=== PATIENT | male | born 1995 | race Caucasian/White ===

== ENCOUNTER 2018-09-24 19:21 | Emergency (ER) | payer OTHER ==
[2018-09-24 19:35] VITALS: BP 127/62; PULSE 88; TEMP 98.3; BMI 35.9
--- NOTE | 2018-09-24 19:35 | PDOC ---
Rapid Medical Evaluation Time Seen by Provider: 09/24/18 19:33 Medical Evaluation: Allergies Allergy/AdvReac Type Severity Reaction Status Date / Time No Known Allergies Allergy Verified 12/07/13 17:48 09/24/18 19:34 I have performed a brief in-person evaluation of this patient. The patient presents with a chief complaint of: atraumatic left thigh pain Pertinent physical exam findings: left quadriceps TTP mid thigh. I have ordered the following: nothing The patient will proceed to the ED for further evaluation. Discharge Disposition - Diagnosis Thigh pain - Referrals - Patient Instructions - Post Discharge Activity
--- NOTE | 2018-09-24 21:16 | PDOC ---
History of Present Illness - General Chief Complaint: Pain Stated Complaint: PCP SENT/THIGH PAIN Time Seen by Provider: 09/24/18 19:33 - History of Present Illness Initial Comments: 09/24/18 21:14 22-year-old healthy male with a past medical history significant for atrial fibrillation. He is off medication and has been out of A. fib for the last 2 years presents for evaluation of atraumatic left superior thigh pain. No systemic symptoms. Past History - Past Medical History Allergies/Adverse Reactions: Allergies Allergy/AdvReac Type Severity Reaction Status Date / Time No Known Allergies Allergy Verified 09/24/18 19:35 Home Medications: Ambulatory Orders NK [No Known Home Medication] 09/24/18 Cardiac Disorders: Yes (AFIB) COPD: No - Suicide/Smoking/Psychosocial Hx Smoking History: Never smoked Review of Systems - Review of Systems Musculoskeletal: Yes: Muscle Pain *Physical Exam - Vital Signs Last Vital Signs Temp Pulse Resp BP Pulse Ox 98.3 F 88 18 127/62 100 09/24/18 19:33 09/24/18 19:33 09/24/18 19:33 09/24/18 19:33 09/24/18 19:33 - Physical Exam Comments: 09/24/18 21:14 Left thigh skin color and temperature are normal range of motion of the hip and knee are full and nonpainful. Is mild tenderness about the area of the anterior superior thigh. 5 out of 5 strength in bilateral lower extremities without gross sensorimotor deficits thighs and calves are otherwise soft and nontender Moderate Sedation - Procedure Monitoring Vital Signs: Procedure Monitoring Vital Signs Temperature 98.3 F 09/24/18 19:33 Pulse Rate 88 09/24/18 19:33 Respiratory Rate 18 09/24/18 19:33 Blood Pressure 127/62 09/24/18 19:33 O2 Sat by Pulse Oximetry (%) 100 09/24/18 19:33 *DC/Admit/Observation/Transfer Diagnosis at time of Disposition: Thigh pain - Discharge Dispostion Disposition: HOME Condition at time of disposition: Stable Decision to Admit order: No - Referrals Referrals: ON STAFF,NOT [Primary Care Provider] - Niranjan Valdivia MD [Staff Physician] - - Patient Instructions Additional Instructions: He may take Tylenol and Motrin as directed for pain. Return to the emergency room should symptoms worsen or go unresolved and follow-up with orthopedic surgery in 2-3 days for further evaluation and treatment options. - Post Discharge Activity
== END 2018-09-24 21:31 | disposition home or self-care (01) ==
LOC: JERFT 19:21
DX: M79.652 Pain in left thigh (principal); Z86.79 Personal history of other diseases of the circulatory system
CPT/HCPCS: 99281-25

== ENCOUNTER 2018-10-25 17:44 | Emergency (ER) | payer OTHER ==
[2018-10-25 17:52] VITALS: BP 123/80; PULSE 105; TEMP 97.9; BMI 35.9
--- NOTE | 2018-10-25 17:55 | PDOC ---
History of Present Illness - General Chief Complaint: Pain Stated Complaint: RT SHOULDER PAIN Time Seen by Provider: 10/25/18 17:54 History Source: Patient - History of Present Illness Initial Comments: 10/25/18 18:24 22 year old male c/o left shoulder and scapula reports lifting heavy boxes 1 week ago. denies trauma or injury. denies chest pain, NVD, abdominal pain. pain is worse with movement pmhxL afib s/p ablation 10/25/18 18:31 Past History - Past Medical History Allergies/Adverse Reactions: Allergies Allergy/AdvReac Type Severity Reaction Status Date / Time No Known Allergies Allergy Verified 10/25/18 17:52 Home Medications: Ambulatory Orders Ibuprofen 600 mg PO QID PRN #20 tablet 10/25/18 Cardiac Disorders: Yes (AFIB) COPD: No - Surgical History Cardiac Surgery: Yes (ablasion at 18 yrs old) - Suicide/Smoking/Psychosocial Hx Smoking History: Never smoked Review of Systems - Review of Systems Able to Perform ROS?: Yes Is the patient limited Nigerien proficient: No Constitutional: No: Symptoms Reported, See HPI, Chills, Diaphoresis, Fever, Loss of Appetite, Malaise, Night Sweats, Weakness, Weight Stable, Unintentional Wgt. Loss, Unexplained wgt Loss, Other Musculoskeletal: Yes: Other (left shoulder pain ) *Physical Exam - Vital Signs Last Vital Signs Temp Pulse Resp BP Pulse Ox 97.9 F 105 H 20 123/80 97 10/25/18 17:49 10/25/18 17:49 10/25/18 17:49 10/25/18 17:49 10/25/18 17:49 - Physical Exam General Appearance: Yes: Appropriately Dressed Respiratory/Chest: negative: Chest Tender Musculoskeletal: positive: Other (full rom . left scapula tenderness) Neurologic: positive: Fully Oriented, Alert Moderate Sedation - Procedure Monitoring Vital Signs: Procedure Monitoring Vital Signs Temperature 97.9 F 10/25/18 17:49 Pulse Rate 105 H 10/25/18 17:49 Respiratory Rate 20 10/25/18 17:49 Blood Pressure 123/80 10/25/18 17:49 O2 Sat by Pulse Oximetry (%) 97 10/25/18 17:49 *DC/Admit/Observation/Transfer Diagnosis at time of Disposition: Pain of left scapula - Discharge Dispostion Disposition: HOME - Prescriptions Prescriptions: Ibuprofen 600 mg PO QID PRN #20 tablet PRN Reason: Muscle Spasms - Referrals - Patient Instructions Printed Discharge Instructions: Muscle Strain Additional Instructions: apply or ice or heat to the area. follow up with your doctor as soon as possible. take ibuprofen every 6 hours as needed for pain Additional Instructions: * Please call your personal physician to report your Emergency Department visit and to report your progress, if any. * If there is no improvement in symptoms in 2 days call your physician. * Return to the Emergency Department for any worsening symptoms. - Post Discharge Activity Forms/Work/School Notes: Back to Work
[2018-10-25] MEDS ORDERED: KETOROLAC TROMETHAMINE 60 MG/2 ML VIAL IM ONE (18:08)
[2018-10-25] MEDS ORDERED: KETOROLAC TROMETHAMINE 60 MG/2 ML VIAL ONE (18:26)
== END 2018-10-25 19:28 | disposition home or self-care (01) ==
LOC: JERFT 17:44
PROC: 3E0233Z Introduction of Anti-inflammatory into Muscle, Percutaneous Approach (ICD-10-PCS; principal; 2018-10-25)
DX: M25.512 Pain in left shoulder (principal); Z86.79 Personal history of other diseases of the circulatory system
CPT/HCPCS: 73010-TC-FY; 73030-TC-LT-FY; 99281-25

== ENCOUNTER 2019-01-23 01:29 | Inpatient (IN) | payer OTHER ==
[2019-01-23 01:57] VITALS: BMI 31.2
[2019-01-23] MEDS ORDERED: dilTIAZem HCL 50 MG/10 ML - 10 ML VIAL IVPUSH ONE ×2 (01:59→08:48)
[2019-01-23] MEDS ORDERED: dilTIAZem HCL 125 MG/25 ML - 25 ML VIAL ONE ×2 (02:06→08:53)
[2019-01-23] MEDS ORDERED: dilTIAZem HCL 60 MG TABLET (FP) PO ONE (02:17)
[2019-01-23] MEDS ORDERED: dilTIAZem HCL 60 MG TABLET (FP) ONE (02:19)
[2019-01-23] MEDS ORDERED: dilTIAZem HCL 30 MG TABLET (FP) ONE (02:19)
[2019-01-23 02:22] LABS: EOS % 1.4 % (0-4.5); HEMATOCRIT 41.6 % (35.4-49); HEMOGLOBIN 13.8 GM/dL (11.7-16.9); LYMPH % 26.7 % (8-40); MCH 27.4 pg (25.7-33.7); MCHC 33.1 g/dl (32.0-35.9); MEAN CELL VOLUME 82.7 fl (80-96); MEAN PLT VOLUME 9.8 fl (7.5-11.1); MONO % 10.7 % (3.8-10.2); NEUT % 60.2 % (42.8-82.8); PLATELET COUNT 203 K/MM3 (134-434); RBC 5.03 M/mm3 (4.00-5.60); RDW 13.7 % (11.9-15.9); WHITE BLOOD COUNT 10.1 K/mm3 (4.0-10.0)
--- NOTE | 2019-01-23 02:28 | PDOC ---
Attending Attestation - Resident Resident Name: Rylan Angel - ED Attending Attestation I have performed the following: I have examined & evaluated the patient, The case was reviewed & discussed with the resident, I agree w/resident's findings & plan, Exceptions are as noted - HPI HPI: 01/23/19 02:28 23M pmh of afib s/p ablation 2014 here with sudden onset of palpitations 1 hour prior to presentation. Pt states he was drinking a glass of cold water when he felt the beginning of palpitations. No chest pain, n/v, lightheadedness, dizziness. Pt has been asymptomatic since ablation and is not on medications/ AC. No other complaints - Physicial Exam PE: 01/23/19 02:30 GENERAL: Well-appearing, well-nourished. No apparent distress. HEENT: Normocephalic, atraumatic. PERRL, EOM intact. CARDIOVASCULAR: Tachycardic to 130s on exam, irregularly irregular PULMONARY: Clear to auscultation bilaterally. ABDOMEN: Soft, non-distended, non-tender. EXTREMITIES: Normal ROM in all four extremities. No gross deformities. SKIN: Warm, dry. No rash NEUROLOGICAL: No focal neurological deficits. - Medical Decision Making 01/23/19 02:30 Recurrence of AFib s/p ablation with associated RVR f/u labs, ekg, cxr cardizem, re-eval HR irregular 80s-110s after cardizem admit
[2019-01-23 02:37] LABS: INR 1.09 (0.83-1.09); PROTHROMBIN TIME (PATIENT) 12.9 SEC (9.7-13.0)
--- NOTE | 2019-01-23 02:47 | PDOC ---
History of Present Illness - General Chief Complaint: Irregular Heart Beat Stated Complaint: PALPITATIONS Time Seen by Provider: 01/23/19 01:41 History Source: Patient Exam Limitations: No Limitations - History of Present Illness Initial Comments: 01/23/19 02:20 Patient is a 23M with history of afib s/p ablation in 2016 here today complaining of palpitations that onset acutely 1 hour prior to arrival. Endorses associated shortness of breath. Denies chest pain, fevers, chills, nausea, vomiting. Patient states that the symptoms onset after drinking water, like it has during prior episodes. Denies alcohol and drug use. Denies dysuria, abdominal pain. EMS reports HR to 180s-200s. Given adenosine 6 and 12, afib w/ rvr seen. Given 25mg of dilt in field. Cards: Jeremy Past History - Past Medical History Allergies/Adverse Reactions: Allergies Allergy/AdvReac Type Severity Reaction Status Date / Time No Known Allergies Allergy Verified 10/25/18 17:52 Home Medications: Ambulatory Orders NK [No Known Home Medication] 01/23/19 Cardiac Disorders: Yes (AFIB) COPD: No - Surgical History Cardiac Surgery: Yes (ablasion at 18 yrs old) - Suicide/Smoking/Psychosocial Hx Smoking History: Never smoked Have you smoked in the past 12 months: No Hx Alcohol Use: Yes (occasionaly) Drug/Substance Use Hx: No Review of Systems - Review of Systems Comments:: 01/23/19 02:47 GENERAL/CONSTITUTIONAL: No fever or chills. No weakness. HEAD, EYES, EARS, NOSE AND THROAT: No change in vision. No sore throat. CARDIOVASCULAR: No chest pain +shortness of breath +palpitations RESPIRATORY: No cough, wheezing, or hemoptysis. GASTROINTESTINAL: No nausea, vomiting, diarrhea or constipation. GENITOURINARY: No dysuria, frequency, or change in urination. MUSCULOSKELETAL: No joint or muscle swelling or pain. No neck or back pain. SKIN: No rash NEUROLOGIC: No headache, vertigo, loss of consciousness, or change in strength/ sensation. HEMATOLOGIC/LYMPHATIC: No anemia, easy bleeding, or history of blood clots. ALLERGIC/IMMUNOLOGIC: No hives or skin allergy. *Physical Exam - Vital Signs Last Vital Signs Temp Pulse Resp BP Pulse Ox 99 F 106 H 16 108/63 100 01/23/19 02:16 01/23/19 02:17 01/23/19 02:16 01/23/19 02:17 01/23/19 02:16 - Physical Exam Comments: 01/23/19 02:50 GENERAL: Awake, alert, and fully oriented, in no acute distress HEAD: No signs of trauma, normocephalic, atraumatic EYES: PERRLA, EOMI, sclera anicteric, conjunctiva clear ENT: Auricles normal inspection, hearing grossly normal, nares patent, oropharynx clear without exudates. Moist mucosa NECK: Normal ROM, supple, no lymphadenopathy, JVD, or masses LUNGS: No distress, speaks full sentences, clear to auscultation bilaterally HEART: Tachycardic, normal peripheral pulses ABDOMEN: Soft, nontender, normoactive bowel sounds. No guarding, no rebound. No masses EXTREMITIES: Normal inspection, Normal range of motion, no edema. No clubbing or cyanosis. NEUROLOGICAL: Cranial nerves II through XII grossly intact. Normal speech, no focal sensorimotor deficits SKIN: Warm, Dry, normal turgor, no rashes or lesions noted. ED Treatment Course - LABORATORY CBC & Chemistry Diagram: 01/23/19 02:13 01/23/19 02:13 - RADIOLOGY Radiology Studies Ordered: Category Date Time Status CHEST X-RAY PORTABLE* [RAD] Stat Radiology 01/23/19 01:50 Ordered - Medications Given in the ED: ED Medications Discontinued Medications Generic Name Dose Route Start Last Admin Trade Name Freq PRN Reason Stop Dose Admin Diltiazem HCl 20 mg 01/23/19 01:59 01/23/19 02:16 Cardizem Injection - IVPUSH 01/23/19 02:00 20 mg ONCE ONE Administration Medical Decision Making - Medical Decision Making 01/23/19 02:52 Patient is 23M with history of afib s/p ablation in 2016 here today with afib w / rvr. Tachycardic. EKG shows afib with rvr. No st elevations/depressions. Normal axis. No significant t wave changes. Given 20 dilt. HR 90s-110s. Basic labs drawn. Will admit. 01/23/19 03:43 CBC normal. CMP normal. Trop negative. Hospitalist paged for admission. 01/23/19 04:03 Case d/w Dr Child. 01/23/19 05:23 Given 5 metoprolol IV and 50 metoprolol. HR controlled. *DC/Admit/Observation/Transfer Diagnosis at time of Disposition: Atrial fibrillation with RVR - Referrals - Patient Instructions - Post Discharge Activity
[2019-01-23 02:53] LABS: ALBUMIN 3.4 g/dl (3.4-5.0); ALK PHOS 74 U/L (45-117); ANION GAP 8 MMOL/L (8-16); BILIRUBIN,TOTAL 0.4 mg/dL (0.2-1); BLOOD UREA NITROGEN 18 mg/dL (7-18); CALCIUM 8.7 mg/dL (8.5-10.1); CHLORIDE 110 mmol/L (98-107); CO2 25 mmol/L (21-32); CREATININE 1.1 mg/dL (0.55-1.3); GLUCOSE,RANDOM 118 mg/dL (74-106); MAGNESIUM 2.2 mg/dL (1.8-2.4); POTASSIUM 4.4 mmol/L (3.5-5.1); SGOT/AST 31 U/L (15-37); SGPT/ALT 30 U/L (13-61); SODIUM 142 mmol/L (136-145); TOT PROT 6.8 g/dl (6.4-8.2)
--- NOTE | 2019-01-23 03:40 | HP ---
CHIEF COMPLAINT:palpitation , SOB PCP: Dr.Christopher holley ([address] ) HISTORY OF PRESENT ILLNESS: Patient is a 23M with history of, ADHD as child , afib s/p ablation in 2016 here today complaining of palpitations that onset acutely 1 hour prior to arrival. Endorses associated shortness of breath. Denies chest pain, fevers, chills, nausea, vomiting. Patient states that the symptoms onset after drinking water, like it has during prior episodes. Denies alcohol and drug use. Denies dysuria, abdominal pain. EMS reports HR to 180s-200s. Given adenosine 6 and 12, afib w/ rvr seen. Given 25mg of dilt in field.deneis any headache , dissiness , lightheadedness ,denies any sore throat or recent cold or sick contact. pt denies any palpitation since the ablation 2015 and denies any use of AC first Afib episode was documented at age of 8 years when he was on ADHD meds. he was on rate control meds between that and 2016 the ablation procedure , mother does not know meds name Cards: [facility] course was notable for: (1)Cardizim IV 20 , Cardizim Po 90 (2)Metoprolol IV 5 , Metoprolol 50 po once (3)cbc, cmp , BGM 118 Recent Travel: denies PAST MEDICAL HISTORY: AFIB S/P ablation 2016 PAST SURGICAL HISTORY: cardiac ablation Social History: Smoking:denies Alcohol:denies Drugs: denies Family History:Heart disease with grand father Allergies No Known Allergies Allergy (Verified 10/25/18 17:52) HOME MEDICATIONS: Home Medications Medication Instructions Recorded NK [No Known Home Medication] 01/23/19 REVIEW OF SYSTEMS CONSTITUTIONAL: Absent: fever, chills, diaphoresis, generalized weakness, malaise, loss of appetite, weight change HEENT: Absent: rhinorrhea, nasal congestion, throat pain, throat swelling, difficulty swallowing, mouth swelling, ear pain, eye pain, visual changes CARDIOVASCULAR: Absent: chest pain, syncope, palpitations, irregular heart rate, lightheadedness , peripheral edema RESPIRATORY: Absent: cough, shortness of breath, dyspnea with exertion, orthopnea, wheezing, stridor, hemoptysis GASTROINTESTINAL: Absent: abdominal pain, abdominal distension, nausea, vomiting, diarrhea, constipation, melena, hematochezia GENITOURINARY: Absent: dysuria, frequency, urgency, hesitancy, hematuria, flank pain, genital pain MUSCULOSKELETAL: Absent: myalgia, arthralgia, joint swelling, back pain, neck pain SKIN: Absent: rash, itching, pallor HEMATOLOGIC/IMMUNOLOGIC: Absent: easy bleeding, easy bruising, lymphadenopathy, frequent infections ENDOCRINE: Absent: unexplained weight gain, unexplained weight loss, heat intolerance, cold intolerance NEUROLOGIC: Absent: headache, focal weakness or paresthesias, dizziness, unsteady gait, seizure, mental status changes, bladder or bowel incontinence PSYCHIATRIC: Absent: anxiety, depression, suicidal or homicidal ideation, hallucinations. PHYSICAL EXAMINATION Vital Signs - 24 hr 01/23/19 01/23/19 01/23/19 01:30 02:10 02:16 Temperature 99 F 99 F Pulse Rate 139 H Pulse Rate [ 90 Left Apical] Pulse Rate [ 112 H Left Radial] Respiratory 20 16 Rate Blood Pressure 108/61 Blood Pressure 128/92 [Left Arm] Blood Pressure 128/92 [Right Arm] O2 Sat by Pulse 100 100 Oximetry (%) 01/23/19 02:17 Temperature Pulse Rate Pulse Rate [ 106 H Left Apical] Pulse Rate [ Left Radial] Respiratory Rate Blood Pressure Blood Pressure [Left Arm] Blood Pressure 108/63 [Right Arm] O2 Sat by Pulse Oximetry (%) GENERAL: Awake, alert, and fully oriented, in no acute distress. HEAD: Normal with no signs of trauma. EYES: Pupils equal, round and reactive to light, extraocular movements intact, sclera anicteric, conjunctiva clear. No lid lag. EARS, NOSE, THROAT: Ears normal, nares patent, oropharynx clear without exudates. Moist mucous membranes. NECK: Normal range of motion, supple without lymphadenopathy, JVD, or masses. LUNGS: Breath sounds equal, clear to auscultation bilaterally. No wheezes, and no crackles. No accessory muscle use. HEART: Irr IRR , normal S1 and S2 without murmur, rub or gallop. ABDOMEN:Obese, Soft, nontender, not distended, normoactive bowel sounds, MUSCULOSKELETAL: Normal range of motion at all joints. UPPER EXTREMITIES: 2+ pulses, warm, well-perfused. LOWER EXTREMITIES: 2+ pulses, warm, well-perfused. No calf tenderness. No peripheral edema. NEUROLOGICAL: Cranial nerves II-XII intact. Normal speech. PSYCHIATRIC: Cooperative. Good eye contact. Appropriate mood and affect. SKIN: Warm, dry, normal turgor, Laboratory Results - last 24 hr 01/23/19 01/23/19 01/23/19 02:13 02:13 02:13 WBC 10.1 H RBC 5.03 Hgb 13.8 Hct 41.6 MCV 82.7 MCH 27.4 MCHC 33.1 RDW 13.7 Plt Count 203 MPV 9.8 Absolute Neuts (auto) 6.1 Neutrophils % 60.2 Lymphocytes % 26.7 Monocytes % 10.7 H Eosinophils % 1.4 Basophils % 1.0 Nucleated RBC % 0 PT with INR 12.90 INR 1.09 Sodium 142 Potassium 4.4 Chloride 110 H Carbon Dioxide 25 Anion Gap 8 BUN 18 Creatinine 1.1 Creat Clearance w eGFR 82.95 Random Glucose 118 H Calcium 8.7 Magnesium 2.2 Total Bilirubin 0.4 AST 31 ALT 30 Alkaline Phosphatase 74 Creatine Kinase 160 Creatine Kinase Index 0.6 CK-MB (CK-2) < 1.0 Troponin I < 0.02 Total Protein 6.8 Albumin 3.4 CBC, BMP 01/23/19 02:13 01/23/19 02:13 ASSESSMENT/PLAN: 23 year old male with h/o Afib s/p ablation 2013 presented with new onset of palpitation admitted to tele inpatient for Afib w RVR. # AFib with RVR * HR .180-200 in EMS , was given 6 Adenosin then 12 ,then Diltiazem 25 IV push drop .. * in ED was given Deltiazim 20 IV and diltiazem 90 Pp drop his HR to 130 , then raise up again 160 ED gave him Metoprolol IV 5 and metoprolol PO 50 once * cardiac , bp monitor * Rate control with BB metoprol 25 BID , consider to start on drip if HR >120 * echo in am * cardiology consult Dr Chavarria * consider AC in AM * trend trop * EKG AFIV with RVR , QTC 448 * TSH , UA , ESR, CRP , urine tox * IV fluids NS @ 100 CC/hr # ADHD not on any meds now # mild leuckocytosis no source of infection ,no fever will monitor off abx # obesity # elevated BGM * A1c * educated about life style change and diet modification # FEN * NS @ 100 CC/hr * Monitor lytes * NPO # proph * DVTS: SCDS , Hep SQ TID * Gi: no need for now # full code Visit type - Emergency Visit Emergency Visit: Yes ED Registration Date: 01/23/19 Care time: The patient presented to the Emergency Department on the above date and was hospitalized for further evaluation of their emergent condition. - New Patient This patient is new to me today: Yes Date on this admission: 01/23/19 - Critical Care Critical Care patient: No
--- NOTE | 2019-01-23 03:44 | PN ---
Teaching Attending Note Name of Resident: Mukund Child ATTENDING PHYSICIAN STATEMENT I saw and evaluated the patient. I reviewed the resident's note and discussed the case with the resident. I agree with the resident's findings and plan as documented. SUBJECTIVE: Patient is a 23 year old man with history of Afib (?induced by ADHD medications as a youngster), s/p ablation in 2016 and right testicle removal, presents with a complaint of palpitations that started 1 hour prior to arrival. Has associated shortness of breath. Denies chest pain, fevers, chills, nausea, vomiting. Patient states that the symptoms onset after drinking water, like it has during prior episodes. Denies alcohol and drug use. Denies dysuria, abdominal pain. EMS reports HR to 180s-200s. Given adenosine 6 and 12, afib with RVR seen. Given 25mg of diltiazem in field. OBJECTIVE: Alert Vital Signs Period Temp Pulse Resp BP Sys/Ryan Pulse Ox Last 24 Hr 99 F-99 F 90-139 16-20 108-128/61-92 100-100 HEENT: No Jaundice, eye redness or discharge, PERRLA, EOMI. Normocephalic, atraumatic. External ears are normal and hearing is grossly intact. No nasal discharge. Neck: Supple, nontender. No palpable adenopathy or thyromegaly. No JVD Chest: Good effort. Clear to auscultation and percussion. Heart: Irregularly irregular. No S3, rub or murmur Abdomen: Not distended, soft, nontender and no HSM. No rebound or guarding. Normal bowel sounds. Ext: Peripheral pulses intact. No leg edema. Skin: Warm and dry. No petechiae, rash or ecchymosis. Neuro: Alert. Oriented x3. CN 2-12 grossly intact. Sensation grossly intact in all four extremities and DTR are symmetric. Psych: Appropriate mood and affect. Good insight. Home Medications Medication Instructions Recorded NK [No Known Home Medication] 01/23/19 Abnormal Lab Results 01/23/19 01/23/19 02:13 02:13 WBC 10.1 H Monocytes % 10.7 H Chloride 110 H Random Glucose 118 H ASSESSMENT AND PLAN: 1. Afib with RVR - No obvious precipitating factor. EKG shows afib with RVR and no significant ST-T wave changes. Patient got bolus doses of cardiazem in the ER , but rate remains high. Will treat with IV cardiazem drip and give 30 mg po q 6 hours. Will start a DOAC after ECHO is done to rule out valvular heart disease. CXR shows mild cardiomegaly and RLL atelectasis. Admit to telemetry, get ECHO, urine toxicology, urinalysis, TSH, HbA1c, fasting lipids and consult cardioology. 2. Obesity Counseled on the risks associated with obesity. Will provide patient all the necessary assistance, counseling and positive reinforcement to facilitate weight loss. Consult speech language pathologist assistant. 3. DVT prophylaxis - Lovenox 40 mg SQ q 24 hours. 4. Advance directives - Full code
[2019-01-23] MEDS ORDERED: SODIUM CHLORIDE 1,000 ML IV SCH (04:00)
[2019-01-23] MEDS ORDERED: METOPROLOL TARTRATE 5 MG/5 ML VIAL ONE ×2 (04:17→04:21)
[2019-01-23] MEDS ORDERED: METOPROLOL TARTRATE 5 MG/5 ML VIAL IVPUSH ONE (04:19)
[2019-01-23 04:22] LABS: URINE APPEARANCE CLEAR; URINE BILIRUBIN NEGATIVE (NEGATIVE); URINE COLOR YELLOW; URINE GLUCOSE (UA) NEGATIVE (NEGATIVE); URINE KETONE NEGATIVE (NEGATIVE); URINE LEUK ESTERASE NEGATIVE (NEGATIVE); URINE NITRITE NEGATIVE (NEGATIVE); URINE PROTEIN NEGATIVE (NEGATIVE); URINE UROBILINOGEN 0.2 mg/dL (0.2-1.0)
[2019-01-23] MEDS ORDERED: METOPROLOL TARTRATE 50 MG TABLET (FP) PO ONE (04:22)
[2019-01-23] MEDS ORDERED: METOPROLOL TARTRATE 50 MG TABLET (FP) ONE (04:24)
[2019-01-23] MEDS ORDERED: HEPARIN NA (PORCINE) 5,000 UNITS/ML 1ML VIAL SQ SCH (06:00)
[2019-01-23] MEDS ORDERED: HEPARIN NA (PORCINE) 5,000 UNITS/ML 1ML VIAL ONE (06:11)
[2019-01-23 07:23] LABS: BASO % 0.6 % (0-2.0); EOS % 1.5 % (0-4.5); HEMATOCRIT 40.8 % (35.4-49); HEMOGLOBIN 13.4 GM/dL (11.7-16.9); LYMPH % 34.7 % (8-40); MCH 27.4 pg (25.7-33.7); MEAN CELL VOLUME 83.2 fl (80-96); MEAN PLT VOLUME 9.6 fl (7.5-11.1); MONO % 10.3 % (3.8-10.2); NEUT % 52.9 % (42.8-82.8); PLATELET COUNT 199 K/MM3 (134-434); RDW 13.7 % (11.9-15.9); WHITE BLOOD COUNT 8.6 K/mm3 (4.0-10.0)
[2019-01-23 07:51] LABS: INR 1.06 (0.83-1.09); PROTHROMBIN TIME (PATIENT) 12.5 SEC (9.7-13.0)
[2019-01-23 07:54] LABS: ACTIVATED PTT 36.3 SECONDS (25.2-36.5)
[2019-01-23 07:56] LABS: COCAINE, UR NEGATIVE ng/ml (CUTOFF=300); METHADONE, UR NEGATIVE ng/ml (CUTOFF=300); OPIATES, URI NEGATIVE ng/ml (CUTOFF=300); PHENCYCLIDINE,URINE NEGATIVE ng/ml (CUTOFF=25); URINE AMPHETAMINES NEGATIVE ng/ml (CUTOFF=500); URINE BARBITURATES NEGATIVE ng/ml (CUTOFF=200); URINE BENZODIAZEPINES NEGATIVE ng/ml (CUTOFF=200)
[2019-01-23 08:06] LABS: ANION GAP 10 MMOL/L (8-16); BLOOD UREA NITROGEN 18 mg/dL (7-18); CHLORIDE 111 mmol/L (98-107); CO2 22 mmol/L (21-32); CREATININE 0.9 mg/dL (0.55-1.3); GLUCOSE,RANDOM 90 mg/dL (74-106); PHOSPHOROUS 3.8 mg/dL (2.5-4.9); POTASSIUM 3.9 mmol/L (3.5-5.1); SODIUM 143 mmol/L (136-145)
--- NOTE | 2019-01-23 10:04 | ECHO ---
Name: TERRY CONRAD Exam:Adult Echocardiogram Study Date: 01/23/2019 08:53 AM Age: 23 yrs Reason For Study: r/o anatomic abnormality, a fib Height: 71 in Weight: 224 lb BSA: 2.2 m2 MMode/2D Measurements & Calculations IVSd: 0.94 cm Ao root diam: 2.8 cm LVIDd: 4.9 cm LA dimension: 3.0 cm LVIDs: 3.1 cm LVPWd: 1.0 cm LVPWs: 1.9 cm EDV(Teich): 115.2 ml ESV(Teich): 37.1 ml LVOT diam: 2.0 cm RV S Narciso: 12.3 cm/sec Doppler Measurements & Calculations Ao V2 max: 102.5 cm/sec LV V1 max P.8 mmHg Ao max P.3 mmHg LV V1 max: 82.9 cm/sec Ao V2 mean: 75.4 cm/sec Ao mean P.8 mmHg Ao V2 VTI: 20.0 cm CARI(V,D): 2.6 cm2 TR max narciso: 204.8 cm/sec PA V2 max: 85.5 cm/sec TR max P.8 mmHg PA max P.9 mmHg Med Peak E' Narciso: 9.7 cm/sec Lat Peak E' Narciso: 13.5 cm/sec Left Ventricle Left ventricular systolic function is borderline reduced. Ejection Fraction = 45-50%. There is mild g lobal hypokinesis of the left ventricle. Right Ventricle The right ventricle is normal in size and function. Atria The left atrium is borderline dilated. Mitral Valve There is mild mitral valve thickening. There is no mitral valve stenosis. There is mild mitral regurg itation. Tricuspid Valve The tricuspid valve is normal in structure and function. There is mild tricuspid regurgitation. Aortic Valve There is mild aortic sclerosis.;. No hemodynamically significant valvular aortic stenosis. No aortic regurgitation is present. Pulmonic Valve The pulmonic valve is not well seen, but is grossly normal. There is no pulmonic valvular stenosis. T here is no pulmonic valvular regurgitation. Great Vessels The aortic root is normal size. Pericardium/Pleura There is no pericardial effusion. Interpretation Summary Left ventricular systolic function is borderline reduced. There is mild global hypokinesis of the left ventricle. Ejection Fraction = 45-50%. The right ventricle is normal in size and function. There is mild mitral valve thickening. There is mild mitral regurgitation. There is mild tricuspid regurgitation. There is mild aortic sclerosis.; There is no pericardial effusion. MD Martinez *Geovanny 01/23/2019 10:04 AM
--- NOTE | 2019-01-23 10:25 | EKG ---
Test Reason : Blood Pressure : / mmHG Vent. Rate : 134 BPM Atrial Rate : 125 BPM P-R Int : 000 ms QRS Dur : 086 ms QT Int : 300 ms P-R-T Axes : 000 044 025 degrees QTc Int : 448 ms ATRIAL FIBRILLATION WITH RAPID VENTRICULAR RESPONSE ABNORMAL ECG Confirmed by ROXY CABAN MD ([id number]) on 01/23/2019 10:25:17 AM Referred By: Confirmed By:ROXY CABAN MD
[2019-01-23 10:27] LABS: CHOLESTEROL 136 mg/dL (50-200); HDL CHOLESTEROL 30 mg/dL (40-60); TRIGLYCERIDES 233 mg/dL (0-150)
[2019-01-23] MEDS ORDERED: metoPROLOL SUCCINATE 25 MG TAB.SR.24H (FP) PO SCH (10:30)
[2019-01-23] MEDS ORDERED: APIXABAN 5 MG TABLET PO SCH (10:30)
--- NOTE | 2019-01-23 10:33 | CON.CARD ---
Consult Consult Specialty:: cardiology Reason for Consultation:: AF with RVR - History of Present Illness History of Present Illness: Patient is a 23M with history of afib s/p ablation in 2016 here today complaining of palpitations that onset acutely 1 hour prior to arrival. Endorses associated shortness of breath. Denies chest pain, fevers, chills, nausea, vomiting. Patient states that the symptoms onset after drinking water, like it has during prior episodes. Denies alcohol and drug use. Denies dysuria, abdominal pain. EMS reports HR to 180s-200s. Given adenosine 6 and 12, afib w/ rvr seen. Given 25mg of dilt in field. Cards: Jeremy - History Source History Provided By: Patient, Family Member, Medical Record Limitations to Obtaining History: No Limitations - Alcohol/Substance Use Hx Alcohol Use: Yes (occasionaly) - Smoking History Smoking history: Never smoked Have you smoked in the past 12 months: No Home Medications - Allergies Allergies/Adverse Reactions: Allergies Allergy/AdvReac Type Severity Reaction Status Date / Time No Known Allergies Allergy Verified 10/25/18 17:52 - Home Medications Home Medications: Ambulatory Orders NK [No Known Home Medication] 01/23/19 Vital Signs: Vital Signs Temperature 99 F 01/23/19 02:16 Pulse Rate 94 H 01/23/19 09:35 Respiratory Rate 16 01/23/19 09:35 Blood Pressure 112/68 01/23/19 09:35 O2 Sat by Pulse Oximetry (%) 99 01/23/19 09:00 - Other Data Labs, Other Data: CBC, BMP 01/23/19 07:01 01/23/19 07:01 INR, PTT INR 1.06 (0.83-1.09) 01/23/19 07:01 Troponin, BNP 01/23/19 01/23/19 01/23/19 02:13 07:01 07:10 Troponin I < 0.02 0.02 Cancelled Troponin, BNP 01/23/19 01/23/19 01/23/19 02:13 07:01 07:10 Troponin I < 0.02 0.02 Cancelled Problem List - Problems (1) AVNRT (AV kusum re-entry tachycardia) Assessment/Plan: Pt with hx PAF; 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 (he had been having breakthrough palpitations while on flecainide and metoprolol; since the ablation, he has been on no medications. Code(s): I47.1 - SUPRAVENTRICULAR TACHYCARDIA (2) Atrial fibrillation with RVR Assessment/Plan: ECHO: mildly reduced LV; borderline LAE. TNI < 0.02 x 2 Electrolytes and TSH WNL. As discussed with pt's computer numerical control grinder, Dr. Luna: Pt will be placed on metoprolol ER 25 mg daily. Will start apixaban 5 mg bid (though CHADxSxVasc score is essentially zero) for possible cardioversion (if pt has not spontaneously cardioverted) in one month. He will plan to take pt off apixaban after the cardioversion. Plan to f/u with EP. Fom cardiac standpoint presently,, pt may be discharged home once above medications are given, with a f/u with PMD and Dr. Luna next week. Code(s): I48.91 - UNSPECIFIED ATRIAL FIBRILLATION (3) Obesity (BMI 30.0-34.9) Code(s): E66.9 - OBESITY, UNSPECIFIED (4) Hypertriglyceridemia Code(s): E78.1 - PURE HYPERGLYCERIDEMIA (5) ADHD (attention deficit hyperactivity disorder) Assessment/Plan: on no medications since ?16 yrs old. Code(s): F90.9 - ATTENTION-DEFICIT HYPERACTIVITY DISORDER, UNSPECIFIED TYPE
[2019-01-23] MEDS ORDERED: APIXABAN 5 MG TABLET PO ONE (10:50)
--- NOTE | 2019-01-23 11:03 | DS ---
Physical Examination Vital Signs: Vital Signs Temperature 99 F 01/23/19 02:16 Pulse Rate 94 H 01/23/19 09:35 Respiratory Rate 16 01/23/19 09:35 Blood Pressure 112/68 01/23/19 09:35 O2 Sat by Pulse Oximetry (%) 99 01/23/19 09:00 no CP no SOB, no palpitations Constitutional: Yes: Calm Cardiovascular: Yes: Pulse Irregular, S1, S2 Respiratory: Yes: CTA Bilaterally Gastrointestinal: Yes: Normal Bowel Sounds, Soft Edema: No Neurological: Yes: Alert, Oriented Labs: CBC, BMP 01/23/19 07:01 01/23/19 07:01 Discharge Summary Reason For Visit: ATRIAL FIBRILLATION WITH RAPID VENTRICULAR RESPONS Current Active Problems ADHD (attention deficit hyperactivity disorder) (Acute) AVNRT (AV kusum re-entry tachycardia) (Acute) Atrial fibrillation with RVR (Acute) Hypertriglyceridemia (Acute) Obesity (BMI 30.0-34.9) (Acute) Hospital Course: Admission Chief Complaint: Unresponsive. Hypotension History of Present Illness: . Patient is a 23M with history of, ADHD as child , afib s/p ablation in 2016 here today complaining of palpitations that onset acutely 1 hour prior to arrival. Endorses associated shortness of breath. Denies chest pain, fevers, chills, nausea, vomiting. Patient states that the symptoms onset after drinking water, like it has during prior episodes. Denies alcohol and drug use. Denies dysuria, abdominal pain. EMS reports HR to 180s-200s. Given adenosine 6 and 12, afib w/ rvr seen. Given 25mg of dilt in field.deneis any headache , dissiness , lightheadedness ,denies any sore throat or recent cold or sick contact. echo done mild global hypokinesis of left ventricle, ejection fraction 45% sen by cardiology to get metoprolol 25mg and eliquis 5mg bid and FU with cardiology Condition: Improved - Instructions Diet, Activity, Other Instructions: low fat diet omega 3 fish oil once daily repeat cholesterol level in one month FU with material reclaimer in one week Referrals: Gurmeet Luna MD [Non Staff, Medical] - Disposition: HOME - Home Medications Comprehensive Discharge Medication List: Ambulatory Orders NK [No Known Home Medication] 01/23/19
[2019-01-23 13:37] VITALS: BP 100/53; PULSE 86; TEMP 98.1
== END 2019-01-23 14:42 | disposition home or self-care (01) | DRG 201 ==
LOC: JER 01:29 → JERBED 03:44
PROVIDERS: ADMIT Internal Medicine; ATTEND Family Medicine
DX: I48.91 Unspecified atrial fibrillation (principal); I47.1 Supraventricular tachycardia; E66.9 Obesity, unspecified; Z68.31 Body mass index [BMI] 31.0-31.9, adult; F90.9 Attention-deficit hyperactivity disorder, unspecified type; D72.829 Elevated white blood cell count, unspecified; E78.1 Pure hyperglyceridemia
CPT/HCPCS: 36415; 71045-TC-FY; 80048; 80053; 80061; 80307; 81003; 82550; 82553; 83036; 83721; 83735; 84100; 84443; 84484; 85025; 85610; 85730; 93005; 93010; 93306-TC; 99285-25; J1644; J7030

== ENCOUNTER 2020-06-23 12:49 | Inpatient (IN) | payer OTHER ==
[2020-06-23 13:01] VITALS: BMI 34.4
[2020-06-23] MEDS ORDERED: METOPROLOL TARTRATE 5 MG/5 ML VIAL IVPUSH ONE ×3 (13:44→15:47)
[2020-06-23] MEDS ORDERED: APIXABAN 5 MG TABLET PO ONE (13:47)
[2020-06-23] MEDS ORDERED: APIXABAN 5 MG TABLET ONE (13:51)
[2020-06-23] MEDS ORDERED: METOPROLOL TARTRATE 5 MG/5 ML VIAL ONE ×3 (13:51→15:54)
[2020-06-23 13:57] LABS: HEMATOCRIT 46.3 % (35.4-49); HEMOGLOBIN 15.5 GM/dL (11.7-16.9); MCH 27.7 pg (25.7-33.7); MCHC 33.4 g/dl (32.0-35.9); MEAN CELL VOLUME 83.1 fl (80-96); MEAN PLT VOLUME 10.1 fl (7.5-11.1); PLATELET COUNT 232 K/MM3 (134-434); RBC 5.57 M/mm3 (4.00-5.60); RDW 13.8 % (11.9-15.9); WHITE BLOOD COUNT 10.5 K/mm3 (4.0-10.0)
[2020-06-23 14:34] LABS: ALK PHOS 86 U/L (45-117); ANION GAP 6 MMOL/L (8-16); BILIRUBIN,TOTAL 0.4 mg/dL (0.2-1); BLOOD UREA NITROGEN 12.4 mg/dL (7-18); CALCIUM 9.5 mg/dL (8.5-10.1); CHLORIDE 108 mmol/L (98-107); CO2 28 mmol/L (21-32); CREATININE 0.9 mg/dL (0.55-1.3); GLUCOSE,RANDOM 83 mg/dL (74-106); POTASSIUM 4.4 mmol/L (3.5-5.1); SGOT/AST 20 U/L (15-37); SGPT/ALT 34 U/L (13-61); SODIUM 142 mmol/L (136-145); TOT PROT 7.7 g/dl (6.4-8.2)
[2020-06-23 14:41] LABS: INR 1.08 (0.83-1.09); PROTHROMBIN TIME (PATIENT) 12.7 SEC (9.7-13.0)
[2020-06-23 14:44] LABS: ACTIVATED PTT 35.1 SECONDS (25.2-36.5)
[2020-06-23] MEDS ORDERED: METOPROLOL TARTRATE 25 MG TABLET (FP) PO ONE (15:44)
[2020-06-23] MEDS ORDERED: METOPROLOL TARTRATE 25 MG TABLET (FP) ONE (15:54)
--- NOTE | 2020-06-23 15:54 | PDOC ---
History of Present Illness - General Chief Complaint: Chest Pain Stated Complaint: CHEST PAIN/SOB (AFIB) Time Seen by Provider: 06/23/20 13:23 - History of Present Illness Initial Comments: 24 yo male with PMH of A.Fib s/p Ablation in 2016. He presents with sob and cp that started 3 hours ago after eating ice cream. Pt says he has had similar episodes in the past brought on by cold drinks. He is usually on Metoprolol and Eliquis but has run out of meds for the last weeks. He denies fevers, chills, nvd, coughs, congestion, recent illnesses. He follows with Dr. Luna for cardiology and does not have a PCP. Past History - Medical History Allergies/Adverse Reactions: Allergies Allergy/AdvReac Type Severity Reaction Status Date / Time No Known Allergies Allergy Verified 06/23/20 13:01 Home Medications: Ambulatory Orders Apixaban [Eliquis -] 5 mg PO BID 30 Days #60 tablet 01/13/20 Metoprolol Succinate [Toprol XL -] 50 mg PO DAILY 30 Days #30 tab.sr.24h 01/13/20 Cancer: Yes (testicular CA) Cardiac Disorders: Yes (AFIB) COPD: No - Surgical History Cardiac Surgery: Yes (ablasion at 18 yrs old) - Immunization History Immunization Up to Date: Yes - Psycho-Social/Smoking History Smoking History: Never smoked Have you smoked in the past 12 months: No Information on smoking cessation initiated: No - Substance Abuse Hx (Audit-C & DAST Scrn) How often the patient has a drink containing alcohol: Monthly or less Number of drinks the patient has on a typical day: 1 or 2 How often the patient has six or more drinks on one occasion: Never Score: In Men: 4 or > Positive; In Women: 3 or > Positive: 1 Screen Result (Pos requires Nsg. Audit-10AR): Negative In the last yr the pt used illegal drug/Rx for NonMed reason: No Score: Yes response is considered Positive: 0 Screen Result (Positive result requires Nsg. DAST-10): Negative Review of Systems - Review of Systems Able to Perform ROS?: Yes Constitutional: No: Chills, Fever HEENTM: No: Recent change in vision, Double Vision Respiratory: Yes: Shortness of Breath. No: Cough Cardiac (ROS): Yes: Chest Pain, Irregular Heart Rate, Chest Tightness. No: Palpitations, Syncope ABD/GI: No: Diarrhea, Nausea, Vomiting : No: Burning, Dysuria, Hematuria Integumentary: No: Dryness, Lesions Neurological: No: Headache, Dizziness Psychiatric: No: Anxiety, Depression, Mood Swings Endocrine: No: Intolerance to Cold, Intolerance to Heat Hematologic/Lymphatic: No: Anemia, Bleeding Diathesis *Physical Exam - Vital Signs Last Vital Signs Temp Pulse Resp BP Pulse Ox 98.1 F 129 H 19 129/98 99 06/23/20 12:59 06/23/20 14:09 06/23/20 14:09 06/23/20 15:11 06/23/20 14:09 - Physical Exam General Appearance: Yes: Appropriately Dressed. No: Apparent Distress HEENT: positive: EOMI, Normal Voice Neck: negative: Tender, Rigid Respiratory/Chest: positive: Lungs Clear, Normal Breath Sounds. negative: Respiratory Distress Cardiovascular: positive: S1, S2. negative: Regular Rhythm, Regular Rate, JVD Gastrointestinal/Abdominal: positive: Normal Bowel Sounds, Flat, Soft Musculoskeletal: positive: Normal Inspection. negative: CVA Tenderness Extremity: positive: Normal Capillary Refill, Normal Inspection, Normal Range of Motion Integumentary: positive: Normal Color, Dry, Warm Neurologic: positive: Fully Oriented, Alert, Normal Mood/Affect ED Treatment Course - LABORATORY CBC & Chemistry Diagram: 06/23/20 13:49 06/23/20 13:49 - ADDITIONAL ORDERS Additional order review: Laboratory Results 06/23/20 06/23/20 13:49 13:19 PT with INR 12.70 INR 1.08 PTT (Actin FS) 35.1 Sodium 142 Potassium 4.4 Chloride 108 H Carbon Dioxide 28 Anion Gap 6 L BUN 12.4 Creatinine 0.9 Est GFR (CKD-EPI)AfAm 138.06 Est GFR (CKD-EPI)NonAf 119.12 Random Glucose 83 Calcium 9.5 Total Bilirubin 0.4 AST 20 ALT 34 Alkaline Phosphatase 86 Creatine Kinase 166 Creatine Kinase Index No Result Required. CK-MB (CK-2) < 1.0 Troponin I < 0.02 Total Protein 7.7 Albumin 4.0 06/23/20 13:49 RBC 5.57 MCV 83.1 MCHC 33.4 RDW 13.8 MPV 10.1 - Medications Given in the ED: ED Medications Discontinued Medications Generic Name Dose Route Start Last Admin Trade Name Robert PRN Reason Stop Dose Admin Apixaban 5 mg 06/23/20 13:47 06/23/20 13:58 Eliquis - PO 06/23/20 13:48 5 mg ONCE ONE Administration Metoprolol Tartrate 5 mg 06/23/20 13:44 06/23/20 13:56 Lopressor Injection - IVPUSH 06/23/20 13:45 5 mg ONCE ONE Administration Metoprolol Tartrate 5 mg 06/23/20 14:53 06/23/20 15:11 Lopressor Injection - IVPUSH 06/23/20 14:54 5 mg ONCE ONE Administration Medical Decision Making - Medical Decision Making 24 yo male with PMH of Afib with RVR s/p ablation in 2016 presents with Chest Pressure and Shortness of Breath EKG ventricular rate of 165 with A.Fib with RVR Pt treated with metoprolol (5, iv), BP stable in 140s/80s with HR of 140s metoprolol (5, iv), HR/BP stable, symptoms have improved metoprolol (5, iv), HR/BP stable metoprolol (25,po), HR/BP stable metoprolol (50,po) Spoke with Dr. Luna who suggested raising the metoprolol oral load to 75mg then placing him on 50mg q6 and admitting him to telemetry. Discharge - Discharge Information Problems reviewed: Yes Clinical Impression/Diagnosis: Atrial fibrillation with RVR Condition: Stable - Admission Yes - Follow up/Referral - Patient Discharge Instructions - Post Discharge Activity
--- NOTE | 2020-06-23 16:02 | PDOC ---
Documentation entered by Karen Vargas SCRIBE, acting as scribe for Ita Owusu MD. Ita Owusu MD: This documentation has been prepared by the jose antonio, Karen Vargas SCRIBE, under my direction and personally reviewed by me in its entirety. I confirm that the documentation accurately reflects all work, treatment, procedures, and medical decision making performed by me. Attending Attestation - Resident Resident Name: Brina Casas - ED Attending Attestation I have performed the following: I have examined & evaluated the patient, The case was reviewed & discussed with the resident, I agree w/resident's findings & plan, Exceptions are as noted - HPI HPI: 06/23/20 14:49 The patient is a 24 year old male with past medical history significant for Afib s/p ablation who presents to the emergency department with 2-3hours of chest pressure and palpitations. The sxs began while he was at rest. The patient reports he hasnt been compliant with his metoprolol or eliquis for the last week as he ran out of both medications.He denies any recent fevers, chills, headache, dizziness, diaphoresis, nausea, vomiting, diarrhea, shortness of breath, abdominal pain, lower extremity edema. Denies heavy alcohol use. - Physicial Exam PE: 06/23/20 16:00 Agree with resident exam - Medical Decision Making 06/23/20 16:00 24-year-old male with a history of A. fib status post ablation presents emergency department with chest pressure. Patient found to be in A. fib with rapid ventricular response to the 190s. Patient is not compliant with rate control or anticoagulation at home. Patient was given metoprolol 5 mg IV with reduction of heart rate to the 130s. He was given a second dose of 5 mg IV with reduction of heart rate to the 120s. We will give a third dose of 5 mg metoprolol IV as well as his home dose of 25 mg p.o. If heart rate remains above 110 will discuss case with his shank scourer. At this time he reports improved chest pressure. Labs including troponin within normal limits. Heart Score/ECG Review #1 06/23/20 16:03 Twelve-lead EKG was performed and reviewed by me. Atrial fibrillation with rapid ventricular response. Rate 165. Normal axis. No ST elevations Discharge - Follow up/Referral Referrals: Yanci Ontiveros [Primary Care Provider] - - Patient Discharge Instructions - Post Discharge Activity
[2020-06-23] MEDS ORDERED: METOPROLOL TARTRATE 50 MG TABLET (FP) PO ONE (16:09)
[2020-06-23] MEDS ORDERED: METOPROLOL TARTRATE 50 MG TABLET (FP) ONE (16:15)
--- NOTE | 2020-06-23 17:15 | HP ---
CHIEF COMPLAINT:palpitations; SOB PCP: cardio: dr baer; no pcp HISTORY OF PRESENT ILLNESS: 24 yo male with PMH of afib (diagnosed at age 18; s/p ablation in 2016 which was unsuccessful) testicular ca (2005) presents to the ED with complaints of chest pressure and palpitations - patient states that his symptoms started at around 11 this morning where he felt that his heart was racing and it was associated with some shortness of breath and chest pressure- he does endorse that he has not taken his afib meds in about a week as he ran out-he last saw his chief analytics officer in december and was supposed to have a follow up appointment in one month- he denies any systemic symptoma; no recent travel or sick contacts- no changes in bowel habits the ED contacted dr baer who suggested loading with 75 po of metoprolol ER course was notable for: (1)inital HR 200; EKG shows afib with RVR; BP MAP 79 (2)wbc 10.5; Cr 0.9; trop neg x1 (3)received 15 IV of lopressor and 75 PO of metoprolol Recent Travel: denies PAST MEDICAL HISTORY: see above PAST SURGICAL HISTORY: right testicle removed Social History: Smoking:denies Alcohol:social alcohol use Drugs: Allergies No Known Allergies Allergy (Verified 06/23/20 13:01) HOME MEDICATIONS: Home Medications Medication Instructions Recorded Apixaban [Eliquis -] 5 mg PO BID 30 Days #60 tablet 01/13/20 Metoprolol Succinate [Toprol XL -] 50 mg PO DAILY 30 Days #30 01/13/20 tab.sr.24h REVIEW OF SYSTEMS CONSTITUTIONAL: Absent: fever, chills, diaphoresis, generalized weakness, malaise, loss of appetite, weight change HEENT: Absent: rhinorrhea, nasal congestion, throat pain, throat swelling, difficulty swallowing, mouth swelling, ear pain, eye pain, visual changes CARDIOVASCULAR: Present: palpitations, irregular heart rate Absent: chest pain, syncope,lightheadedness, peripheral edema RESPIRATORY: Absent: cough, shortness of breath, dyspnea with exertion, orthopnea, wheezing, stridor, hemoptysis GASTROINTESTINAL: Absent: abdominal pain, abdominal distension, nausea, vomiting, diarrhea, constipation, melena, hematochezia GENITOURINARY: Absent: dysuria, frequency, urgency, hesitancy, hematuria, flank pain, genital pain MUSCULOSKELETAL: Absent: myalgia, arthralgia, joint swelling, back pain, neck pain SKIN: Absent: rash, itching, pallor HEMATOLOGIC/IMMUNOLOGIC: Absent: easy bleeding, easy bruising, lymphadenopathy, frequent infections ENDOCRINE: Absent: unexplained weight gain, unexplained weight loss, heat intolerance, cold intolerance NEUROLOGIC: Absent: headache, focal weakness or paresthesias, dizziness, unsteady gait, seizure, mental status changes, bladder or bowel incontinence PSYCHIATRIC: Absent: anxiety, depression, suicidal or homicidal ideation, hallucinations. PHYSICAL EXAMINATION Vital Signs - 24 hr 06/23/20 06/23/20 06/23/20 12:59 13:56 14:09 Temperature 98.1 F Pulse Rate 71 Pulse Rate [ 129 H Left Radial] Respiratory 16 19 Rate Blood Pressure 108/73 166/138 H Blood Pressure 156/128 H [Right Arm] O2 Sat by Pulse 99 99 Oximetry (%) 06/23/20 06/23/20 06/23/20 15:11 15:58 15:59 Temperature 98.6 F Pulse Rate Pulse Rate [ 138 H Left Radial] Respiratory 19 Rate Blood Pressure 129/98 146/119 H Blood Pressure 146/119 H [Right Arm] O2 Sat by Pulse 100 Oximetry (%) GENERAL: Awake, alert, and fully oriented, in no acute distress.. EYES: PEERLA: EOMI; no scleral icterus . NECK: no JVD; no lymphadenopathy LUNGS: CTA B/L no rales, rhonchi or wheezing HEART:irregularly irregular, tachycardic, S1 and S2 without murmur, rub or gallop. ABDOMEN: Soft, NT ND +BS in all 4 quadrants MUSCULOSKELETAL: Normal range of motion at all joints. No bony deformities or tenderness. No CVA tenderness. EXTREMITIES: warm; well-perfused no clubbing/cyanosis trace edema NEUROLOGICAL: Cranial nerves II-XII intact. Normal speech. Normal gait. PSYCHIATRIC: Cooperative. Good eye contact. Appropriate mood and affect. SKIN: Warm, dry, normal turgor, no rashes or lesions noted, normal capillary refill. Laboratory Results - last 24 hr 06/23/20 06/23/20 06/23/20 13:19 13:49 13:49 WBC 10.5 H RBC 5.57 Hgb 15.5 Hct 46.3 D MCV 83.1 MCH 27.7 MCHC 33.4 RDW 13.8 Plt Count 232 MPV 10.1 PT with INR 12.70 INR 1.08 PTT (Actin FS) 35.1 Sodium 142 Potassium 4.4 Chloride 108 H Carbon Dioxide 28 Anion Gap 6 L BUN 12.4 Creatinine 0.9 Est GFR (CKD-EPI)AfAm 138.06 Est GFR (CKD-EPI)NonAf 119.12 Random Glucose 83 Calcium 9.5 Total Bilirubin 0.4 AST 20 ALT 34 Alkaline Phosphatase 86 Creatine Kinase 166 Creatine Kinase Index No Result Required. CK-MB (CK-2) < 1.0 Troponin I < 0.02 Total Protein 7.7 Albumin 4.0 ASSESSMENT/PLAN: 24 yo male with PMH of afib (diagnosed at age 18; s/p ablation in 2016 which was unsuccessful) presents to the ED with complaints of chest pressure and palpitations found to be in afib with RVR #Afib with RVR patient received a total of 15 IV lopressor and 75 PO -will c/w 50 po BID as per recommendations made last time patient was here -IV lopressor PRN -cardio consult -TSH -repeat cardiac profile; negative x1 -monitor hemodynamics -eliquis -echo -tele monitoring f/e/n not on fluids monitor electrolytes regular diet dvt ppx: eliquis dispo: tele monitoring Family Medical History Family History: As Documented Family Hx Cardiac Disorders: Grandmother (paternal) Family Hx Diabetes: Father Problem List - Problem (1) Atrial fibrillation with RVR Code(s): I48.91 - UNSPECIFIED ATRIAL FIBRILLATION Visit type - Emergency Visit Emergency Visit: Yes ED Registration Date: 06/23/20 Care time: The patient presented to the Emergency Department on the above date and was hospitalized for further evaluation of their emergent condition. - New Patient This patient is new to me today: Yes Date on this admission: 06/23/20 - Critical Care Critical Care patient: No ATTENDING PHYSICIAN STATEMENT I saw and evaluated the patient. I reviewed the resident's note and discussed the case with the resident. I agree with the resident's findings and plan as documented. SUBJECTIVE: OBJECTIVE: ASSESSMENT AND PLAN:
--- NOTE | 2020-06-23 17:45 | PN ---
Teaching Attending Note Name of Resident: Katie Steele ATTENDING PHYSICIAN STATEMENT I saw and evaluated the patient. I reviewed the resident's note and discussed the case with the resident. I agree with the resident's findings and plan as documented. SUBJECTIVE: pt is seen and examined OBJECTIVE: Last Vital Signs Temp Pulse Resp BP Pulse Ox 98.6 F 138 H 19 146/119 H 100 06/23/20 15:59 06/23/20 15:59 06/23/20 15:59 06/23/20 15:59 06/23/20 15:59 GENERAL: Awake, alert, and fully oriented, in no acute distress. HEAD: Normal with no signs of trauma. EYES: Pupils equal, round and reactive to light, sclera anicteric, conjunctiva clear. LUNGS: Breath sounds equal, clear to auscultation bilaterally. No wheezes, and no crackles. No accessory muscle use. HEART: Irregular, normal S1 and S2 ABDOMEN: Soft, nontender, not distended MUSCULOSKELETAL: Normal range of motion at all joints. No bony deformities or tenderness. No CVA tenderness. UPPER EXTREMITIES: 2+ pulses, warm, well-perfused. No cyanosis. No clubbing. No peripheral edema. LOWER EXTREMITIES: 2+ pulses, warm, well-perfused. No calf tenderness. No peripheral edema. NEUROLOGICAL: Cranial nerves II-XII intact. Normal speech. CBCD WBC 10.5 K/mm3 (4.0-10.0) H 06/23/20 13:49 RBC 5.57 M/mm3 (4.00-5.60) 06/23/20 13:49 Hgb 15.5 GM/dL (11.7-16.9) 06/23/20 13:49 Hct 46.3 % (35.4-49) D 06/23/20 13:49 MCV 83.1 fl (80-96) 06/23/20 13:49 MCHC 33.4 g/dl (32.0-35.9) 06/23/20 13:49 RDW 13.8 % (11.9-15.9) 06/23/20 13:49 Plt Count 232 K/MM3 (134-434) 06/23/20 13:49 MPV 10.1 fl (7.5-11.1) 06/23/20 13:49 CMP Sodium 142 mmol/L (136-145) 06/23/20 13:49 Potassium 4.4 mmol/L (3.5-5.1) 06/23/20 13:49 Chloride 108 mmol/L (98-107) H 06/23/20 13:49 Carbon Dioxide 28 mmol/L (21-32) 06/23/20 13:49 Anion Gap 6 MMOL/L (8-16) L 06/23/20 13:49 BUN 12.4 mg/dL (7-18) 06/23/20 13:49 Creatinine 0.9 mg/dL (0.55-1.3) 06/23/20 13:49 Calcium 9.5 mg/dL (8.5-10.1) 06/23/20 13:49 Total Bilirubin 0.4 mg/dL (0.2-1) 06/23/20 13:49 AST 20 U/L (15-37) 06/23/20 13:49 ALT 34 U/L (13-61) 06/23/20 13:49 Alkaline Phosphatase 86 U/L (45-117) 06/23/20 13:49 Total Protein 7.7 g/dl (6.4-8.2) 06/23/20 13:49 Albumin 4.0 g/dl (3.4-5.0) 06/23/20 13:49 Active Medications Apixaban (Eliquis -) 5 mg PO BID EMLODY Metoprolol Tartrate (Lopressor -) 50 mg PO BID MELODY Metoprolol Tartrate (Lopressor Injection -) 5 mg IVPUSH Q4H PRN PRN Reason: TACHYCARDIA ASSESSMENT AND PLAN: 24 YO man with Mhx of Chronic persistent AFib (failed abelation, on BB and AC), testicular ca and obesity who presented to ED because of palpitations, dyspnea after missing out on medications for one week # AFib with RVR non compliant patient given metoprolol IV in ED, improved HR. ED contacted pt machine stapler who recommended metoprolol tart 50mg q6h after loading 75mg. may consider diltiazem if HR continues elevated check TSH, trend Electrolytes, EKG Tele monitoring restart AC cardiology consult discussed medication compliance, risk of behavior and potential adverse outcomes Obesity h/o testicular cancer DVT prophylaxis (on Apixaban)
[2020-06-23] MEDS ORDERED: DILTIAZEM INJECTION 125 MG in SODIUM CHLORIDE 100 ML IVPB SCH (19:00)
[2020-06-23] MEDS ORDERED: SODIUM CHLORIDE 1,000 ML IV STA (20:13)
--- NOTE | 2020-06-23 20:25 | CONSULT ---
Consultation: REQUESTING PROVIDER: Dr. Steele CONSULT REQUEST: We have been asked to medically evaluate this patient for atrial fibrillation with rapid ventricular rate on rate control drip HISTORY OF PRESENT ILLNESS: 24 yo M with a hx of atrial fibrillation (diagnosed at age 18; s/p ablation in 2016 and had recurrence in 2019) and testicular cancer (2005) presented to the emergency department with palpitations with associative chest pressure with onset at 11 am this morning. Per the patient, he was at rest when he felt his "heart was racing". The patient denies associative SOB. 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 Denies current symptoms save for palpitations. Denies the following: recent sick contacts, fevers, chills, chest pain, back pain, neck pain, lightheadedness, dizziness, abdominal pain, dysuria, hematuria, diarrhea, and leg pain/swelling. No recent immobilizations, hx of PE/DVT, drug use, and thyroid disease. REVIEW OF SYSTEMS: CONSTITUTIONAL: Absent: fever, chills, diaphoresis, generalized weakness, malaise, loss of appetite, weight change HEENT: Absent: rhinorrhea, nasal congestion, throat pain, throat swelling, difficulty swallowing, mouth swelling, ear pain, eye pain, visual changes CARDIOVASCULAR: positive: palpitations, irregular heart rate Absent: chest pain, syncope, lightheadedness, peripheral edema RESPIRATORY: Absent: cough, shortness of breath, dyspnea with exertion, orthopnea, wheezing, stridor, hemoptysis GASTROINTESTINAL: Absent: abdominal pain, abdominal distension, nausea, vomiting, diarrhea, constipation, melena, hematochezia GENITOURINARY: Absent: dysuria, frequency, urgency, hesitancy, hematuria, flank pain, genital pain MUSCULOSKELETAL: Absent: myalgia, arthralgia, joint swelling, back pain, neck pain SKIN: Absent: rash, itching, pallor HEMATOLOGIC/IMMUNOLOGIC: Absent: easy bleeding, easy bruising, lymphadenopathy, frequent infections ENDOCRINE: Absent: unexplained weight gain, unexplained weight loss, heat intolerance, cold intolerance NEUROLOGIC: Absent: headache, focal weakness or paresthesias, dizziness, unsteady gait, seizure, mental status changes, bladder or bowel incontinence PSYCHIATRIC: Absent: anxiety, depression, suicidal or homicidal ideation, hallucinations. PHYSICAL EXAMINATION Vital Signs - 24 hr 06/23/20 06/23/20 06/23/20 12:59 13:56 14:09 Temperature 98.1 F Pulse Rate 71 Pulse Rate [ 129 H Left Radial] Respiratory 16 19 Rate Blood Pressure 108/73 166/138 H Blood Pressure 156/128 H [Right Arm] O2 Sat by Pulse 99 99 Oximetry (%) 06/23/20 06/23/20 06/23/20 15:11 15:58 15:59 Temperature 98.6 F Pulse Rate Pulse Rate [ 138 H Left Radial] Respiratory 19 Rate Blood Pressure 129/98 146/119 H Blood Pressure 146/119 H [Right Arm] O2 Sat by Pulse 100 Oximetry (%) 06/23/20 06/23/20 06/23/20 18:20 19:25 19:33 Temperature 98.5 F Pulse Rate 129 H Pulse Rate [ 135 H 129 H Left Radial] Respiratory 19 17 Rate Blood Pressure 102/53 L Blood Pressure 101/81 102/53 L [Right Arm] O2 Sat by Pulse 100 99 Oximetry (%) GENERAL: Awake, alert, and fully oriented, in no acute distress. HEAD: Normal with no signs of trauma. EYES: Pupils equal, round and reactive to light, extraocular movements intact, sclera anicteric, conjunctiva clear. No lid lag. EARS, NOSE, THROAT: Ears normal, nares patent, oropharynx clear without exudates. Moist mucous membranes. NECK: Normal range of motion, supple without lymphadenopathy, JVD, or masses. LUNGS: Breath sounds equal, clear to auscultation bilaterally. No wheezes, and no crackles. No accessory muscle use. HEART:irregular rhythm, tachycardia, normal S1 and S2 without murmur, rub or gallop. ABDOMEN: Soft, nontender, not distended, normoactive bowel sounds, no guarding, no rebound, no masses. No hepatomegaly or splenomegaly. MUSCULOSKELETAL: Normal range of motion at all joints. No bony deformities or tenderness. No CVA tenderness. UPPER EXTREMITIES: 2+ pulses, warm, well-perfused. No cyanosis. No clubbing. Cap refill <2 seconds. No peripheral edema. LOWER EXTREMITIES: 2+ pulses, warm, well-perfused. No calf tenderness. No peripheral edema. NEUROLOGICAL: Cranial nerves II-XII intact. Normal speech. Unable to assess gait at this time PSYCHIATRIC: Cooperative. Good eye contact. Appropriate mood and affect. SKIN: Warm, dry, normal turgor, no rashes or lesions noted. Laboratory Results - last 24 hr 06/23/20 06/23/20 06/23/20 13:19 13:49 13:49 WBC 10.5 H RBC 5.57 Hgb 15.5 Hct 46.3 D MCV 83.1 MCH 27.7 MCHC 33.4 RDW 13.8 Plt Count 232 MPV 10.1 PT with INR 12.70 INR 1.08 PTT (Actin FS) 35.1 Sodium 142 Potassium 4.4 Chloride 108 H Carbon Dioxide 28 Anion Gap 6 L BUN 12.4 Creatinine 0.9 Est GFR (CKD-EPI)AfAm 138.06 Est GFR (CKD-EPI)NonAf 119.12 Random Glucose 83 Calcium 9.5 Total Bilirubin 0.4 AST 20 ALT 34 Alkaline Phosphatase 86 Creatine Kinase 166 Creatine Kinase Index No Result Required. CK-MB (CK-2) < 1.0 Troponin I < 0.02 Total Protein 7.7 Albumin 4.0 Active Medications Generic Name Dose Route Start Last Admin Trade Name Freq PRN Reason Stop Dose Admin Apixaban 5 mg 06/23/20 22:00 Eliquis - PO BID MELODY Diltiazem HCl 125 mg/ Sodium 125 mls @ 5 mls/hr 06/23/20 19:00 06/23/20 19:33 Chloride IVPB 5 mg/hr TITR MELODY 5 mls/hr Administration Protocol 5 MG/HR Metoprolol Tartrate 50 mg 06/23/20 22:00 Lopressor - PO BID MELODY Metoprolol Tartrate 5 mg 06/23/20 17:15 Lopressor Injection - IVPUSH Q4H PRN TACHYCARDIA (HR > 120) ASSESSMENT/PLAN: Dispo: We will continue to follow the patient. Thank you for this consultative opportunity. Neuro: Patient is currently is alert and oriented x3. NAD Cardiac: Patient has known history of atrial fibrillation s/p failed ablation in 2016 with recurrence with medication non compliance of metoprolol 25 mg qday and eliquis 5 mg BID. Last use of medication was 1 week ago -Cardiology consult in place -Restart home med of 5 mg of eliquis BID -Patient received 15 mg of lopressor injections, and total of 75 mg of metoprolol PO. Patient continues to have RVR with rates in the 140-150s. Patient was placed on diltiazem drip of 10 mg/hr by primary team. Spoke to Dr. Nelson that recommends digoxin 0.25 mg q4 hours with reassessment prior to each dose given the patient's tenuous BPs. This was endorsed to the night team as the patient needs exceptional monitoring and reassessment. -Goal MAP >65. Patient had MAP of 67 in the ED. Ordered 1 L of NS. -No electrolyte disturbance. Will repeat CMP in AM -No TSH or free t4 labs done; ordered as add on lab for previous labs drawn awaiting results to rule out hyperthyroidism -Need to rule out infectious etiologies possibly precipitating atrial fib with RVR. Will order CXR and UA -Continuous cardiac monitoring Respiratory: -Saturating at 100% on RA without distress -Per Cardiology, need to rule out potential PE. D-dimer pending. -Continue pulse oximetry monitoring -Low risk for COVID; pending COVID results GI: No acute concerns Endo: Patient has no history of DM Pending TSH, free t4 Renal: Elucidating other causes of resistant atrial fibrillation such as intoxication. Pending UA and drug screen ID: No overt signs of infection with WBC slightly above normal. Will order CXR and UA to rule out infectious etiology FEN: Full diet as tolerated Prophylaxis: Patient is currently on eliquis SCDs available Visit type - Emergency Visit Emergency Visit: Yes ED Registration Date: 06/23/20 Care time: The patient presented to the Emergency Department on the above date and was hospitalized for further evaluation of their emergent condition. - New Patient This patient is new to me today: Yes Date on this admission: 06/23/20 - Critical Care Critical Care patient: Yes Total Critical Care Time (in minutes): 36 Critical Care Statement: The care of this patient involved high complexity dec ision making to prevent further life threatening deterioration of the patient's condition and/or to evaluate & treat vital organ system(s) failure or risk of failure. ATTENDING PHYSICIAN STATEMENT I saw and evaluated the patient. I reviewed the resident's note and discussed the case with the resident. I agree with the resident's findings and plan as documented. SUBJECTIVE: OBJECTIVE: ASSESSMENT AND PLAN:
[2020-06-23] MEDS ORDERED: CHLORHEXIDINE GLUCONATE 4% CLEANSER FOR DECOLONIZATION TP SCH (22:00)
[2020-06-23] MEDS: METOPROLOL TARTRATE 50 MG TABLET (FP) PO SCH (23:30)
[2020-06-23] MEDS: APIXABAN 5 MG TABLET PO SCH (23:30)
[2020-06-24] MEDS ORDERED: SODIUM CHLORIDE 1,000 ML IV SCH (00:45)
[2020-06-24 06:54] LABS: BASO % 0.6 % (0-2.0); EOS % 1.3 % (0-4.5); HEMOGLOBIN 14.3 GM/dL (11.7-16.9); LYMPH % 36.8 % (8-40); MCH 27.6 pg (25.7-33.7); MCHC 33.1 g/dl (32.0-35.9); MEAN CELL VOLUME 83.4 fl (80-96); MEAN PLT VOLUME 9.7 fl (7.5-11.1); MONO % 9.7 % (3.8-10.2); NEUT % 51.6 % (42.8-82.8); PLATELET COUNT 201 K/MM3 (134-434); RBC 5.16 M/mm3 (4.00-5.60); RDW 13.6 % (11.9-15.9); WHITE BLOOD COUNT 8.2 K/mm3 (4.0-10.0)
[2020-06-24 07:21] LABS: ALBUMIN 3.5 g/dl (3.4-5.0); BILIRUBIN,TOTAL 0.7 mg/dL (0.2-1); BLOOD UREA NITROGEN 13.7 mg/dL (7-18); CALCIUM 8.8 mg/dL (8.5-10.1); CREATININE 0.7 mg/dL (0.55-1.3); POTASSIUM 3.8 mmol/L (3.5-5.1); TOT PROT 6.8 g/dl (6.4-8.2)
[2020-06-24] MEDS ORDERED: DIGOXIN 0.5 MG/2 ML AMPUL IVPUSH ONE (10:45)
[2020-06-24] MEDS ORDERED: METOPROLOL TARTRATE 5 MG/5 ML VIAL IVPUSH ONE (11:06)
--- NOTE | 2020-06-24 11:08 | PN ---
Teaching Attending Note Name of Resident: Oniel Sanchez ATTENDING PHYSICIAN STATEMENT I saw and evaluated the patient. I reviewed the resident's note and discussed the case with the resident. I agree with the resident's findings and plan as documented. SUBJECTIVE: Pt seen and examined in the ICU. Remains in rapid afib. Denies shortness of breath, chest pain, palpitations. OBJECTIVE: Vital Signs Period Temp Pulse Resp BP Sys/Ryan Pulse Ox Last 24 Hr 98.1 F-98.6 F 71-138 13-20 95-166/53-138 99-100 Intake & Output 06/21/20 06/22/20 06/23/20 06/24/20 23:59 23:59 23:59 23:59 Intake Total 103 Balance 103 Weight 108.862 kg Gen: NAD at rest Heart: tachycardic, irregular Lung: decreased breath sounds at the bases Abd: soft, nontender Ext: no edema CBC, BMP 06/24/20 06:15 06/24/20 06:15 Active Medications Apixaban (Eliquis -) 5 mg PO BID [facility] Last Admin: 06/23/20 23:30 Dose: Not Given Documented by: Chlorhexidine Gluconate (Hibiclens For Decolonization -) 1 applic TP HS MELODY Diltiazem HCl 125 mg/ Sodium (Chloride) 125 mls @ 5 mls/hr IVPB TITR MELODY; Protocol Last Titration: 06/23/20 23:00 Dose: 15 mg/hr, 15 mls/hr Documented by: Metoprolol Tartrate (Lopressor -) 50 mg PO BID MELODY Last Admin: 06/23/20 23:30 Dose: Not Given Documented by: Metoprolol Tartrate (Lopressor Injection -) 5 mg IVPUSH Q4H PRN PRN Reason: TACHYCARDIA (HR > 120) Mupirocin (Bactroban Ointment (For Decolonization) -) 1 applic NS BID [facility] Stop: 06/28/20 21:59 ASSESSMENT AND PLAN: Atrial Fibrillation with RVR h/o Testicular Cancer - rate control - titrate off cardizem gtt - anticoagulation per cardiology
[2020-06-24] MEDS: APIXABAN 5 MG TABLET PO SCH ×2 (11:44→21:21)
[2020-06-24] MEDS: MUPIROCIN 2% TOPICAL OINTMENT FOR DECOLONIZATION NS SCH ×2 (11:44→21:16)
[2020-06-24] MEDS: METOPROLOL TARTRATE 50 MG TABLET (FP) PO SCH ×2 (11:44→21:21)
--- NOTE | 2020-06-24 11:44 | PN ---
Progress Note (short form) - Note Progress Note: 24 yo M with a hx of atrial fibrillation (diagnosed at age 18; s/p ablation in 2016 and had recurrence in 2019) and testicular cancer (2005) presented to the emergency department with palpitations with associative chest pressure with onset at 11 am this morning. Pt being seen in the ICU for resitant afib. In the ICU pt received Lop[place]oor, diltiaem drip and digoxin. Pt still on diltiazem drip but being titrated down. Pt has no complaints today of chest pain, SOB, lig htheadedness, fevers or chills. Pt is stable for telemetry Objective: GENERAL: Awake, alert, and fully oriented, in no acute distress HEAD: No signs of trauma, normocephalic, atraumatic EYES: PERRLA, EOMI, sclera anicteric, conjunctiva clear ENT: Auricles normal inspection, hearing grossly normal, nares patent, oropharynx clear without exudates. Moist mucosa NECK: Normal ROM, supple, no lymphadenopathy, JVD, or masses LUNGS: No distress, speaks full sentences, clear to auscultation bilaterally HEART: irregular tachycardic ABDOMEN: Soft, nontender No guarding, no rebound. No masses EXTREMITIES : Normal inspection, Normal range of motion, no edema. No clubbing or cyanosis. NEUROLOGICAL: Cranial nerves II through XII grossly intact. Normal speech SKIN: Warm, Dry, normal turgor, no rashes or lesions noted
--- NOTE | 2020-06-24 12:47 | PN ---
Problem List - Problems (1) Atrial fibrillation with RVR Code(s): I48.91 - UNSPECIFIED ATRIAL FIBRILLATION
--- NOTE | 2020-06-24 13:20 | CON.CARD ---
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 He had an AVNRT ablation in 2017. He has a history of AFIB (on apixaban) and presents now with rapid AFIB with HR's in the 170's. He stated that he did not take his meds (includingToprol XL 50 mg daily) for about one week. Currently his vitals are: BP 99/62 BPM HR 93 BPM - Past Medical History Cardio/Vascular: Yes: AFIB - Alcohol/Substance Use Hx Alcohol Use: No - Smoking History Smoking history: Never smoked Have you smoked in the past 12 months: No Home Medications - Allergies Allergies/Adverse Reactions: Allergies Allergy/AdvReac Type Severity Reaction Status Date / Time No Known Allergies Allergy Verified 06/23/20 13:01 - Home Medications Home Medications: Ambulatory Orders Apixaban [Eliquis -] 5 mg PO BID 30 Days #60 tablet 01/13/20 Metoprolol Succinate [Toprol XL -] 50 mg PO DAILY 30 Days #30 tab.sr.24h 01/13/20 Family Medical History Family Hx Cardiac Disorders: Grandmother (paternal) Family Hx Diabetes: Father Vital Signs: Vital Signs Temperature 98.2 F 06/24/20 02:00 Pulse Rate 138 H 06/24/20 11:44 Respiratory Rate 18 06/24/20 06:00 Blood Pressure 99/62 06/24/20 11:44 O2 Sat by Pulse Oximetry (%) 100 06/24/20 04:00 Constitutional: Yes: No Distress Eyes: Yes: WNL HENT: Yes: WNL Neck: Yes: WNL Respiratory: Yes: CTA Bilaterally Gastrointestinal: Yes: Soft Cardiovascular: Yes: Pulse Irregular Heart Sounds: Yes: S1, S2 Edema: No Neurological: Yes: Alert, Oriented - Other Data Labs, Other Data: CBC, BMP 06/24/20 06:15 06/24/20 06:15 INR, PTT INR 1.08 (0.83-1.09) 06/23/20 13:19 Troponin, BNP 06/23/20 13:49 Troponin I < 0.02 Troponin, BNP 06/23/20 13:49 Troponin I < 0.02 Assessment/Plan 24 year old male, he is followed as an 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 He had an AVNRT ablation in 2017. He has a history of AFIB (on apixaban) and presents now with rapid AFIB with HR's in the 170's. He stated that he did not take his meds (includingToprol XL 50 mg daily) for about one week. Currently his vitals are: BP 99/62 BPM HR 93 BPM Rapid AFIB Continue apixaban for AC (AC was decided by Dr. Luna, can discuss with him the risk/benefits of AC with a low CHADS score) Would try to give 75mg Q12h of lopressor and wean off the dilt drip as tolerated If he is too hypotensive to tolerate the increase in beta seng, would consider dig loading
--- NOTE | 2020-06-24 13:58 | PN ---
Teaching Attending Note Name of Resident: Katie Steele ATTENDING PHYSICIAN STATEMENT I saw and evaluated the patient. I reviewed the resident's note and discussed the case with the resident. I agree with the resident's findings and plan as documented. SUBJECTIVE: pt seen and examined at bedside OBJECTIVE: Last Vital Signs Temp Pulse Resp BP Pulse Ox 98.2 F 138 H 18 99/62 100 06/24/20 02:00 06/24/20 11:44 06/24/20 06:00 06/24/20 11:44 06/24/20 04:00 GENERAL: Awake, alert, and fully oriented, in no acute distress. LUNGS: Breath sounds equal, clear to auscultation bilaterally. No wheezes, and no crackles. No accessory muscle use. HEART: Irregular, normal S1 and S2 ABDOMEN: Soft, nontender, not distended. LOWER EXTREMITIES: 2+ pulses, warm, well-perfused. No calf tenderness. No peripheral edema. NEUROLOGICAL: Cranial nerves II-XII intact. Normal speech. CBCD WBC 8.2 K/mm3 (4.0-10.0) 06/24/20 06:15 RBC 5.16 M/mm3 (4.00-5.60) 06/24/20 06:15 Hgb 14.3 GM/dL (11.7-16.9) 06/24/20 06:15 Hct 43.0 % (35.4-49) 06/24/20 06:15 MCV 83.4 fl (80-96) 06/24/20 06:15 MCHC 33.1 g/dl (32.0-35.9) 06/24/20 06:15 RDW 13.6 % (11.9-15.9) 06/24/20 06:15 Plt Count 201 K/MM3 (134-434) 06/24/20 06:15 MPV 9.7 fl (7.5-11.1) 06/24/20 06:15 CMP Sodium 140 mmol/L (136-145) 06/24/20 06:15 Potassium 3.8 mmol/L (3.5-5.1) 06/24/20 06:15 Chloride 108 mmol/L (98-107) H 06/24/20 06:15 Carbon Dioxide 25 mmol/L (21-32) 06/24/20 06:15 Anion Gap 8 MMOL/L (8-16) 06/24/20 06:15 BUN 13.7 mg/dL (7-18) 06/24/20 06:15 Creatinine 0.7 mg/dL (0.55-1.3) 06/24/20 06:15 Calcium 8.8 mg/dL (8.5-10.1) 06/24/20 06:15 Total Bilirubin 0.7 mg/dL (0.2-1) 06/24/20 06:15 AST 14 U/L (15-37) L 06/24/20 06:15 ALT 29 U/L (13-61) 06/24/20 06:15 Alkaline Phosphatase 77 U/L (45-117) 06/24/20 06:15 Total Protein 6.8 g/dl (6.4-8.2) 06/24/20 06:15 Albumin 3.5 g/dl (3.4-5.0) 06/24/20 06:15 Active Medications Apixaban (Eliquis -) 5 mg PO BID [facility] Last Admin: 06/24/20 11:44 Dose: 5 mg Documented by: Chlorhexidine Gluconate (Hibiclens For Decolonization -) 1 applic TP HS [facility] Diltiazem HCl 125 mg/ Sodium (Chloride) 125 mls @ 5 mls/hr IVPB TITR [facility]; Protocol Last Titration: 06/23/20 23:00 Dose: 15 mg/hr, 15 mls/hr Documented by: Metoprolol Tartrate (Lopressor -) 50 mg PO BID [facility] Last Admin: 06/24/20 11:44 Dose: 50 mg Documented by: Metoprolol Tartrate (Lopressor Injection -) 5 mg IVPUSH Q4H PRN PRN Reason: TACHYCARDIA (HR > 120) Mupirocin (Bactroban Ointment (For Decolonization) -) 1 applic NS BID [facility] Stop: 06/28/20 21:59 Last Admin: 06/24/20 11:44 Dose: Not Given Documented by: ASSESSMENT AND PLAN: 24 YO man with Mhx of Chronic persistent AFib (failed abelation, on BB and AC), testicular ca and obesity who presented to ED because of palpitations, dyspnea after missing out on medications for one week # AFib with RVR non compliant patient was on cardiazem drip HR 90s-105, will transition to PO metoprolol tart 50bid and titrate to control HR labs reviewed Tele monitoring restart AC cardiology consult discussed medication compliance, risk of behavior and potential adverse outcomes Obesity h/o testicular cancer DVT prophylaxis (on Apixaban)
--- NOTE | 2020-06-24 14:59 | EKG ---
Test Reason : Blood Pressure : / mmHG Vent. Rate : 165 BPM Atrial Rate : 170 BPM P-R Int : 000 ms QRS Dur : 074 ms QT Int : 258 ms P-R-T Axes : 000 041 013 degrees QTc Int : 427 ms ATRIAL FIBRILLATION WITH RAPID VENTRICULAR RESPONSE ABNORMAL ECG WHEN COMPARED WITH ECG OF 11-JAN-2020 21:59, VENT. RATE HAS INCREASED BY 59 BPM Confirmed by ROXY CABAN MD ([id number]) on 06/24/2020 2:58:58 PM Referred By: Confirmed By:ROXY CABAN MD
--- NOTE | 2020-06-24 15:29 | PN ---
Progress Note (short form) - Note Progress Note: 24 yo male with PMH of afib (diagnosed at age 18; s/p ablation in 2016 which was unsuccessful) testicular ca (2005) presents to the ED with complaints of chest pressure and palpitations - patients HR is much more controlled; titrating off dilt drip patient is no longer symptomatic HR has been in the 110's gen: NAD; AOx3 HR: irregularly irregular; s1 s2 no mrg LUNGS: cta b/l no rales, rhonci or wheezing ab: soft; NT ND +BS patient has been weaned off dilt drip ad is stable to go on tele floor will f.u cardio recs Problem List - Problems (1) Atrial fibrillation with RVR Code(s): I48.91 - UNSPECIFIED ATRIAL FIBRILLATION
--- NOTE | 2020-06-24 16:07 | ECHO ---
Version: 1 Name: TERRY CONRAD Exam: Adult Echocardiogram Study Date: 06/24/2020, 1:35 PM Age: 24 Years MMode/2D Measurements & Calculations IVSd: 0.92 cm LVIDs: 3.6 cm LVIDd: 5.1 cm LVPWd: 1.00 cm LAV (MOD-bp): 53.0 ml ACS: 2.09 cm Ao root diam: 2.9 cm LVOT diam: 2.20 cm LA dimension: 3.4 cm Doppler Measurements & Calculations MV E max narciso: 79.4 cm/sec Med E/e': 9.1 MV A max narciso: 40.2 cm/sec Med Peak E' Narciso: 8.7 cm/sec MV E/A: 1.98 Lat E/e': 5.4 Lat Peak E' Narciso: 14.7 cm/sec Ao max P.6 mmHg CARI(I,D): 3.1 cm Ao mean P.8 mmHg LV V1 mean: 62.6 cm/sec Ao V2 max: 118.1 cm/sec LV V1 mean P.78 mmHg Left Ventricle Left ventricular systolic function is low normal. Ejection Fraction = 50-55%. The patient was in atr ial fibrillation making accurate assessment of LVEF difficult. Overall, the left ventricular systolic fu nction appears grossly preserved/ low normal. Right Ventricle The right ventricle is grossly normal size. The right ventricular systolic function is grossly prabha l. Atria The left atrium is borderline dilated. Right atrial size is normal. Mitral Valve The mitral valve is normal in structure and function. There is no mitral valve stenosis. There is mi ld mitral regurgitation. Tricuspid Valve The tricuspid valve is not well visualized, but is grossly normal. There is mild tricuspid regurgita tion. Aortic Valve The aortic valve opens well. No hemodynamically significant valvular aortic stenosis. No aortic regu rgitation is present. Pulmonic Valve The pulmonic valve leaflets are thin and pliable; valve motion is normal. Trace to mild pulmonic george vular regurgitation. Great Vessels The aortic root is normal size. Pericardium/Pleura There is no pericardial effusion. Summary Statements Left ventricular systolic function is low normal. The patient was in atrial fibrillation making accurate assessment of LVEF difficult. Overall, the le ft ventricular systolic function appears grossly preserved/ low normal. There is mild mitral regurgitation. There is mild tricuspid regurgitation. No hemodynamically significant valvular aortic stenosis. There is no pericardial effusion. MD Martinez *Geovanny 06/24/2020, 4:07 PM Ordering Physician: Aria Epstein Referring Physician: ARIA EPSTEIN Performed By: Luma Teran
[2020-06-24] MEDS ORDERED: dilTIAZem HCL 30 MG TABLET PO ONE (17:19)
[2020-06-25] MEDS: METOPROLOL TARTRATE 5 MG/5 ML VIAL IVPUSH PRN ×2 (03:39→13:14)
[2020-06-25] MEDS: METOPROLOL TARTRATE 50 MG TABLET (FP) PO SCH ×2 (09:55→21:14)
[2020-06-25] MEDS: APIXABAN 5 MG TABLET PO SCH ×3 (09:55→21:21)
[2020-06-25] MEDS ORDERED: METOPROLOL TARTRATE 50 MG TABLET (FP) PO SCH (12:49)
--- NOTE | 2020-06-25 13:16 | PN ---
Physical Exam: SUBJECTIVE: Patient seen and examined at bedside, still with Afib with RVR, will increase Metoprolol, may need Dig loading if still in RVR. Denies complaints currently. OBJECTIVE: Vital Signs Period Temp Pulse Resp BP Sys/Ryan Pulse Ox Last 24 Hr 98.2 F-98.2 F 95-145 18-20 102-129/53-91 98-100 GENERAL: The patient is awake, alert, and fully oriented, in no acute distress. HEENT NC/AT, EOMI, no JVD, dry MM, R eye w/ strabismus (chronic) and intermittent, neck supple LUNGS: CTAB HEART: Irregularly irregular, rapid rate 100-120BPM ABDOMEN: Soft, nontender, nondistended, normoactive bowel sounds, no guarding, no rebound, no hepatosplenomegaly, no masses. EXTREMITIES: 2+ pulses, warm, well-perfused, no edema. NEUROLOGICAL: Cranial nerves II through XII grossly intact. Normal speech, gait not observed. PSYCH: Normal mood, normal affect. SKIN: Warm, dry, normal turgor, no rashes or lesions noted Laboratory Results - last 24 hr 06/23/20 16:50 COVID-19 ([facility]I) Not detected Active Medications Generic Name Dose Route Start Last Admin Trade Name Freq PRN Reason Stop Dose Admin Apixaban 5 mg 06/23/20 22:00 06/25/20 09:55 Eliquis - PO 5 mg BID MELODY Administration Metoprolol Tartrate 5 mg 06/23/20 17:15 06/25/20 03:39 Lopressor Injection - IVPUSH 5 mg Q4H PRN Administration TACHYCARDIA (HR > 120) Metoprolol Tartrate 75 mg 06/25/20 12:49 Lopressor - PO BID MELODY ASSESSMENT/PLAN: 24 M Afib with RVR on AC s/p ablation in the past unsuccessful HTN HLD Mild cognitive dysfunction Plan: Cont. Ion for Afib Increase Toprol to 75mg BID, load with Digoxin if still in RVR Tele monitoring send Utox/A1c/lipids Resend FT4 by dialysis Cardiology following COVID negative Visit type - Emergency Visit Emergency Visit: Yes ED Registration Date: 06/23/20 Care time: The patient presented to the Emergency Department on the above date and was hospitalized for further evaluation of their emergent condition. - New Patient This patient is new to me today: Yes Date on this admission: 06/25/20 - Critical Care Critical Care patient: No - Discharge Referral Referred to [facility] No
--- NOTE | 2020-06-25 14:01 | PN ---
Progress Note, Physician Chief Complaint: The patient appears comfortable at the time of exam. He reports no chest pain, shortness of breath or palpitation. Telemetry record reviewed. It shows persistent atrial fibrillation with rapid VR 120-140 bpm, up to 180s occasionally. History of Present Illness: 24 year old male, (followed as an outpatient by Dr. Gurmeet Luna, nurse recruiter) with a PMHx of AVNRT s/p ablation in 2017, also history of paroxysmal atrial fibrillation on apixaban admitted now with rapid atrial fibrillation with HR's in the 170-180's after stopping his meds (includingToprol XL 50 mg daily) for about one week. He was treated with IV dilt with improved VR control. Metoprolol started. Echo 06/24/20: Patient was in afib during the exam. LV systolic function low normal. LVEF 50-55%. Normal RV. Borderline for LA dilatation. No significant valvular abnormalities. - Current Medication List Current Medications: Active Medications Apixaban (Eliquis -) 5 mg PO BID [facility] Last Admin: 06/25/20 09:55 Dose: 5 mg Documented by: Metoprolol Tartrate (Lopressor Injection -) 5 mg IVPUSH Q4H PRN PRN Reason: TACHYCARDIA (HR > 120) Last Admin: 06/25/20 13:14 Dose: 5 mg Documented by: Metoprolol Tartrate (Lopressor -) 75 mg PO BID [facility] - Objective Vital Signs: Vital Signs Temperature 98.2 F 06/25/20 01:03 Pulse Rate 150 H 06/25/20 13:14 Respiratory Rate 18 06/25/20 05:45 Blood Pressure 112/70 06/25/20 13:14 O2 Sat by Pulse Oximetry (%) 98 06/25/20 03:14 General: Well developed. Well nourished. No acute distress. Head: Normocephalic. Atraumatic, Eyes: PERRLA, EOMI. Sclerae anicteric. Conjunctivae clear. Neck: Supple. No JVD. No bruits. Heart: Normal S1, S2: Irregular rhythm and tachycardia. No murmur. No gallop or rub. Lungs: Symmetrical air entry. Clear to auscultation. No crackle. No wheezing or rhonchi. Abdomen: Soft. Bowel sound positive. Non tender. No masses. Extremities: No edema. No clubbing or cyanosis. PD 2+, equal bilaterally. Neuro: Intact, no focal findings. AAO X3 Labs: CBC, BMP 06/24/20 06:15 06/24/20 06:15 INR, PTT INR 1.08 (0.83-1.09) 06/23/20 13:19 Assessment/Plan 24 year old male, (followed as an outpatient by Dr. Gurmeet Luna, nurse recruiter) with a PMHx of AVNRT s/p ablation in 2017, also history of paroxysmal atrial fibrillation on apixaban admitted now with rapid atrial fibrillation with HR's in the 170-180's after stopping his meds (includingToprol XL 50 mg daily) for about one week. He was treated with IV dilt with improved VR control. Metoprolol started. Echo 06/24/20: Patient was in afib during the exam. LV systolic function low normal. LVEF 50-55%. Normal RV. Borderline for LA dilatation. No significant valvular abnormalities. Recurrent atrial fibrillation with rapid ventricular response. One additional IV digoxin 0.5mg today, (he received one dose of 0.25 mg yesterday). Add PO Digoxin 0.25 mg daily starting today. Increase metoprolol tartrate to 100 mg BID. Will consider IV amiodarone if VR can not be controlled. Continue apixaban for AC (AC was decided by Dr. Luna, can discuss with him the risk/benefits of AC with a low CHADS score) Continue tele. We will follow the patient with you.
[2020-06-25] MEDS ORDERED: DIGOXIN 0.5 MG/2 ML AMPUL IVPUSH ONE (16:53)
[2020-06-25] MEDS: DIGOXIN 0.25 MG TABLET (FP) PO SCH (17:20)
[2020-06-25 22:00] LABS: PH,URINE 5.5 (5.0-8.0); URINE APPEARANCE CLEAR; URINE BILIRUBIN NEGATIVE (NEGATIVE); URINE COLOR YELLOW; URINE GLUCOSE (UA) NEGATIVE (NEGATIVE); URINE KETONE NEGATIVE (NEGATIVE); URINE LEUK ESTERASE NEGATIVE (NEGATIVE); URINE NITRITE NEGATIVE (NEGATIVE); URINE PROTEIN NEGATIVE (NEGATIVE)
[2020-06-25 22:10] LABS: COCAINE, UR NEGATIVE ng/ml (CUTOFF=300); METHADONE, UR NEGATIVE ng/ml (CUTOFF=300); OPIATES, URI NEGATIVE ng/ml (CUTOFF=300); PHENCYCLIDINE,URINE NEGATIVE ng/ml (CUTOFF=25); URINE AMPHETAMINES NEGATIVE ng/ml (CUTOFF=500); URINE BARBITURATES NEGATIVE ng/ml (CUTOFF=200); URINE BENZODIAZEPINES NEGATIVE ng/ml (CUTOFF=200)
[2020-06-26 08:29] LABS: BASO % 0.5 % (0-2.0); EOS % 1.9 % (0-4.5); HEMATOCRIT 46.1 % (35.4-49); HEMOGLOBIN 15.5 GM/dL (11.7-16.9); LYMPH % 31.6 % (8-40); MCH 27.8 pg (25.7-33.7); MCHC 33.7 g/dl (32.0-35.9); MEAN CELL VOLUME 82.4 fl (80-96); MEAN PLT VOLUME 10.3 fl (7.5-11.1); MONO % 8.5 % (3.8-10.2); NEUT % 57.5 % (42.8-82.8); PLATELET COUNT 251 K/MM3 (134-434); RBC 5.59 M/mm3 (4.00-5.60); RDW 13.9 % (11.9-15.9); WHITE BLOOD COUNT 9.9 K/mm3 (4.0-10.0)
[2020-06-26 08:40] LABS: BILIRUBIN,TOTAL 0.7 mg/dL (0.2-1); BLOOD UREA NITROGEN 14.3 mg/dL (7-18); CALCIUM 9.1 mg/dL (8.5-10.1); CREATININE 0.9 mg/dL (0.55-1.3); POTASSIUM 4.2 mmol/L (3.5-5.1); TOT PROT 7.5 g/dl (6.4-8.2)
[2020-06-26] MEDS: METOPROLOL TARTRATE 50 MG TABLET (FP) PO SCH ×2 (09:48→21:21)
[2020-06-26] MEDS: APIXABAN 5 MG TABLET PO SCH ×2 (09:48→21:20)
[2020-06-26] MEDS: DIGOXIN 0.25 MG TABLET (FP) PO SCH (09:48)
--- NOTE | 2020-06-26 11:42 | PN ---
Progress Note, Physician Chief Complaint: The patient appears comfortable at the time of exam. He reports no chest pain, shortness of breath or palpitation. Telemetry shows persistent atrial fibrillation with improved VR. VR still goes up to 170s when he is moving in his room. History of Present Illness: 24 year old male, (followed as an outpatient by Dr. Gurmeet Luna, oncology patient navigator) with a PMHx of AVNRT s/p ablation in 2017, also history of paroxysmal atrial fibrillation on apixaban admitted now with rapid atrial fibrillation with HR's in the 170-180's after stopping his meds (includingToprol XL 50 mg daily) for about one week. He was treated with IV dilt with improved VR control. Metoprolol and digoxin added. Echo 06/24/20: Patient was in afib during the exam. LV systolic function low normal. LVEF 50-55%. Normal RV. Borderline for LA dilatation. No significant valvular abnormalities. - Current Medication List Current Medications: Active Medications Apixaban (Eliquis -) 5 mg PO BID [facility] Last Admin: 06/26/20 09:48 Dose: 5 mg Documented by: Digoxin (Lanoxin -) 0.25 mg PO DAILY [facility] Last Admin: 06/26/20 09:48 Dose: 0.25 mg Documented by: Metoprolol Tartrate (Lopressor -) 100 mg PO BID [facility] Last Admin: 06/26/20 09:48 Dose: 100 mg Documented by: Metoprolol Tartrate (Lopressor Injection -) 5 mg IVPUSH Q4H PRN PRN Reason: TACHYCARDIA (HR > 120) - Objective Vital Signs: Vital Signs Temperature 97.7 F 06/26/20 10:00 Pulse Rate 88 06/26/20 10:00 Respiratory Rate 20 06/26/20 10:00 Blood Pressure 109/59 L 06/26/20 10:00 O2 Sat by Pulse Oximetry (%) 99 06/26/20 09:00 General: Well developed. Well nourished. No acute distress. Head: Normocephalic. Atraumatic, Eyes: PERRLA, EOMI. Sclerae anicteric. Conjunctivae clear. Neck: Supple. No JVD. No bruits. Heart: Normal S1, S2: Irregular rhythm and tachycardia. No murmur. No gallop or rub. Lungs: Symmetrical air entry. Clear to auscultation. No crackle. No wheezing or rhonchi. Abdomen: Soft. Bowel sound positive. Non tender. No masses. Extremities: No edema. No clubbing or cyanosis. PD 2+, equal bilaterally. Neuro: Intact, no focal findings. AAO X3 Labs: CBC, BMP 06/26/20 07:03 06/26/20 07:03 INR, PTT INR 1.08 (0.83-1.09) 06/23/20 13:19 Assessment/Plan 24 year old male, (followed as an outpatient by Dr. Gurmeet Luna, oncology patient navigator) with a PMHx of AVNRT s/p ablation in 2017, also history of paroxysmal atrial fibrillation on apixaban admitted now with rapid atrial fibr illation with HR's in the 170-180's after stopping his meds (includingToprol XL 50 mg daily) for about one week. He was treated with IV dilt with improved VR control. Metoprolol and digoxin added. Echo 06/24/20: Patient was in afib during the exam. LV systolic function low normal. LVEF 50-55%. Normal RV. Borderline for LA dilatation. No significant valvular abnormalities. Recurrent atrial fibrillation with rapid ventricular response: Ventricular rate control improved. Metoprolol was increased to 100 mg BID and received IV digoxin loading yesterday. Continue digoxin 0.25 mg daily and metoprolol tartrate to 100 mg BID. Will consider DCCV vs IV amiodarone if VR remains rapid. Continue apixaban for AC (AC was decided by Dr. Luna, can discuss with him the risk/benefits of AC with a low CHADS score) Continue tele. Elective atrial fibrillation ablation will be considered. We will follow the patient with you.
--- NOTE | 2020-06-26 13:26 | PN ---
Physical Exam: SUBJECTIVE: Patient seen and examined No complaint of chest pain shortness of breath or fever chills. His heart rate is better today. Still atrial fibrillation. OBJECTIVE: Vital Signs Period Temp Pulse Resp BP Sys/Ryan Pulse Ox Last 24 Hr 97.7 F-98.6 F 88-160 20-20 103-120/56-85 99-99 GENERAL: The patient is awake, alert, and fully oriented, in no acute distress. HEAD: Normal with no signs of trauma. EYES: PERRL, extraocular movements intact, sclera anicteric, conjunctiva clear. No ptosis. ENT: Ears normal, nares patent, oropharynx clear without exudates, moist mucous membranes. NECK: Trachea midline, full range of motion, supple. LUNGS: Breath sounds equal, clear to auscultation bilaterally, no wheezes, no crackles, no accessory muscle use. HEART: Irregular rate and rhythm, S1, S2 without murmur, rub or gallop. ABDOMEN: Soft, nontender, nondistended, normoactive bowel sounds, no guarding, no rebound, no hepatosplenomegaly, no masses. EXTREMITIES: 2+ pulses, warm, well-perfused, no edema. NEUROLOGICAL: Cranial nerves II through XII grossly intact. Normal speech, gait not observed. PSYCH: Normal mood, normal affect. SKIN: Warm, dry, normal turgor, no rashes or lesions noted Laboratory Results - last 24 hr 06/25/20 06/25/20 06/25/20 20:27 20:27 21:18 WBC RBC Hgb Hct MCV MCH MCHC RDW Plt Count MPV Absolute Neuts (auto) Neutrophils % Lymphocytes % Monocytes % Eosinophils % Basophils % Nucleated RBC % Sodium Potassium Chloride Carbon Dioxide Anion Gap BUN Creatinine Est GFR (CKD-EPI)AfAm Est GFR (CKD-EPI)NonAf Random Glucose Hemoglobin A1c % 4.7 Calcium Total Bilirubin AST ALT Alkaline Phosphatase Total Protein Albumin Triglycerides 165 H Cholesterol 158 Total LDL Cholesterol 106 H HDL Cholesterol 28 L Free T4 1.16 Urine Color Urine Appearance Urine pH Ur Specific Byron Urine Protein Urine Glucose (UA) Urine Ketones Urine Blood Urine Nitrite Urine Bilirubin Urine Urobilinogen Ur Leukocyte Esterase Opiates Screen Negative Methadone Screen Negative Barbiturate Screen Negative Phencyclidine Screen Negative Ur Amphetamines Screen Negative MDMA (Ecstasy) Screen Negative Benzodiazepines Screen Negative Cocaine Screen Negative U Marijuana (THC) Screen Negative 06/25/20 06/26/20 06/26/20 21:55 07:03 07:03 WBC 9.9 RBC 5.59 Hgb 15.5 Hct 46.1 MCV 82.4 MCH 27.8 MCHC 33.7 RDW 13.9 Plt Count 251 D MPV 10.3 Absolute Neuts (auto) 5.7 Neutrophils % 57.5 Lymphocytes % 31.6 Monocytes % 8.5 Eosinophils % 1.9 Basophils % 0.5 Nucleated RBC % 0 Sodium 141 Potassium 4.2 Chloride 108 H Carbon Dioxide 26 Anion Gap 7 L BUN 14.3 Creatinine 0.9 Est GFR (CKD-EPI)AfAm 138.06 Est GFR (CKD-EPI)NonAf 119.12 Random Glucose 80 Hemoglobin A1c % Calcium 9.1 Total Bilirubin 0.7 AST 31 ALT 69 H Alkaline Phosphatase 87 Total Protein 7.5 Albumin 4.0 Triglycerides Cholesterol Total LDL Cholesterol HDL Cholesterol Free T4 Urine Color Yellow Urine Appearance Clear Urine pH 5.5 Ur Specific Byron 1.023 Urine Protein Negative Urine Glucose (UA) Negative Urine Ketones Negative Urine Blood Negative Urine Nitrite Negative Urine Bilirubin Negative Urine Urobilinogen 1.0 Ur Leukocyte Esterase Negative Opiates Screen Methadone Screen Barbiturate Screen Phencyclidine Screen Ur Amphetamines Screen MDMA (Ecstasy) Screen Benzodiazepines Screen Cocaine Screen U Marijuana (THC) Screen Active Medications Generic Name Dose Route Start Last Admin Trade Name Freq PRN Reason Stop Dose Admin Apixaban 5 mg 06/25/20 22:00 06/26/20 09:48 Eliquis - PO 5 mg BID [facility] Administration Digoxin 0.25 mg 06/25/20 17:00 06/26/20 09:48 Lanoxin - PO 0.25 mg DAILY [facility] Administration Metoprolol Tartrate 100 mg 06/25/20 16:53 06/26/20 09:48 Lopressor - PO 100 mg BID [facility] Administration Metoprolol Tartrate 5 mg 06/25/20 21:15 Lopressor Injection - IVPUSH Q4H PRN TACHYCARDIA (HR > 120) ASSESSMENT/PLAN: 24-year-old male was admitted for Afib with RVR on AC s/p ablation in the past unsuccessful HTN HLD Mild cognitive dysfunction Plan: Cont. Elqiuis for Afib Increase Toprol to 100 mg BID, started on digoxin today Tele monitoring Resend FT4 by dialysis Cardiology following Visit type - Emergency Visit Emergency Visit: Yes ED Registration Date: 06/23/20 Care time: The patient presented to the Emergency Department on the above date and was hospitalized for further evaluation of their emergent condition. - New Patient This patient is new to me today: Yes Date on this admission: 06/26/20 - Critical Care Critical Care patient: No - Discharge Referral Referred to [facility] No
[2020-06-26] MEDS: METOPROLOL TARTRATE 5 MG/5 ML VIAL IVPUSH PRN (17:49)
[2020-06-27] MEDS: METOPROLOL TARTRATE 5 MG/5 ML VIAL IVPUSH PRN (08:54)
--- NOTE | 2020-06-27 09:17 | PN ---
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, call center rn) with a PMHx of AVNRT s/p ablation in 2017, also history of paroxysmal atrial fibrillation on apixaban admitted now with rapid atrial fibrillation with HR's in the 170-180's after stopping his meds (includingToprol XL 50 mg daily) for about one week. He was treated with IV dilt with improved VR control. Metoprolol and digoxin added. Echo 06/24/20: Patient was in afib during the exam. LV systolic function low normal. LVEF 50-55%. Normal RV. Borderline for LA dilatation. No significant valvular abnormalities. - Current Medication List Current Medications: Active Medications Apixaban (Eliquis -) 5 mg PO BID [facility] Last Admin: 06/26/20 21:20 Dose: 5 mg Documented by: Digoxin (Lanoxin -) 0.25 mg PO DAILY [facility] Last Admin: 06/26/20 09:48 Dose: 0.25 mg Documented by: Metoprolol Tartrate (Lopressor -) 100 mg PO BID [facility] Last Admin: 06/26/20 21:21 Dose: 100 mg Documented by: Metoprolol Tartrate (Lopressor Injection -) 5 mg IVPUSH Q4H PRN PRN Reason: TACHYCARDIA (HR > 120) Last Admin: 06/27/20 08:54 Dose: 5 mg Documented by: - Objective Vital Signs: Vital Signs Temperature 97.7 F 06/27/20 09:00 Pulse Rate 115 H 06/27/20 09:00 Respiratory Rate 18 06/27/20 09:00 Blood Pressure 109/60 06/27/20 09:00 O2 Sat by Pulse Oximetry (%) 97 06/27/20 09:00 Constitutional: Yes: Well Nourished, No Distress, Calm, Severe Distress Eyes: Yes: WNL, EOM Intact HENT: Yes: WNL, Atraumatic, Normocephalic Neck: Yes: WNL, Supple, Trachea Midline Cardiovascular: Yes: Tachycardia, Pulse Irregular Respiratory: Yes: WNL, Regular, CTA Bilaterally Gastrointestinal: Yes: WNL, Normal Bowel Sounds, Soft ...Rectal Exam: Yes: Deferred Genitourinary: Yes: WNL Musculoskeletal: Yes: WNL Extremities: Yes: WNL Edema: No Peripheral Pulses WNL: Yes Integumentary: Yes: WNL Neurological: Yes: WNL, Alert, Oriented ...Motor Strength: WNL Psychiatric: Yes: WNL, Alert, Oriented Labs: CBC, BMP 06/26/20 07:03 06/26/20 07:03 INR, PTT INR 1.08 (0.83-1.09) 06/23/20 13:19 Assessment/Plan 24 year old male, (followed as an outpatient by Dr. Gurmeet Luna, call center rn) with a PMHx of AVNRT s/p ablation in 2017, also history of paroxysmal atrial fibrillation on apixaban admitted now with rapid atrial fibrillation with HR's in the 170-180's after stopping his meds (includingToprol XL 50 mg daily) for about one week. He was treated with IV dilt with improved VR control. Metoprolol and digoxin added. Echo 06/24/20: Patient was in afib during the exam. LV systolic function low normal. LVEF 50-55%. Normal RV. Borderline for LA dilatation. No significant valvular abnormalities. The patient remains in rapid atrial fibrillation this morning. He is essentially asymptomatic and hemodynamically stable. Starting a Cardizem drip. Please uptitrate to rate control. Continue metoprolol as currently. Keep the patient n.p.o. past midnight. Dr. Velez was contacted for the management of atrial fibrillation and considerations for DCCV tomorrow. Dr. Velez will see the patient later today. The patient is stable.
[2020-06-27] MEDS: METOPROLOL TARTRATE 50 MG TABLET (FP) PO SCH ×2 (09:48→21:43)
[2020-06-27] MEDS: DIGOXIN 0.25 MG TABLET (FP) PO SCH (09:48)
[2020-06-27] MEDS: APIXABAN 5 MG TABLET PO SCH ×2 (09:48→21:43)
[2020-06-27] MEDS ORDERED: PT OWN MED DRAWER 7, Y5N ONE (10:21)
[2020-06-27] MEDS: DILTIAZEM INJECTION 125 MG in SODIUM CHLORIDE 100 ML IVPB SCH (10:40)
[2020-06-27 11:53] LABS: BASO % 0.7 % (0-2.0); HEMATOCRIT 45.9 % (35.4-49); HEMOGLOBIN 15.4 GM/dL (11.7-16.9); LYMPH % 29.3 % (8-40); MCH 27.5 pg (25.7-33.7); MCHC 33.6 g/dl (32.0-35.9); MEAN CELL VOLUME 81.9 fl (80-96); MEAN PLT VOLUME 10.2 fl (7.5-11.1); MONO % 9.6 % (3.8-10.2); NEUT % 58.4 % (42.8-82.8); PLATELET COUNT 256 K/MM3 (134-434); RDW 13.6 % (11.9-15.9); WHITE BLOOD COUNT 11.9 K/mm3 (4.0-10.0)
[2020-06-27 12:28] LABS: ALBUMIN 3.8 g/dl (3.4-5.0); CALCIUM 9.3 mg/dL (8.5-10.1); CREATININE 0.9 mg/dL (0.55-1.3); MAGNESIUM 2.1 mg/dL (1.8-2.4); PHOSPHOROUS 4.1 mg/dL (2.5-4.9); POTASSIUM 4.1 mmol/L (3.5-5.1); TOT PROT 7.4 g/dl (6.4-8.2)
--- NOTE | 2020-06-27 18:56 | CON.CARD ---
Consult Consult Specialty:: ELECTROPHYSIOLOGY Referred by:: General Cardiology Reason for Consultation:: Atrial Fibrillation with RVR. Asess for cardioversion. - History of Present Illness Chief Complaint: Palpitations - History Source History Provided By: Patient - Past Medical History Cardio/Vascular: Yes: AFIB - Past Surgical History Additional Surgical History: Orchiectomy - Alcohol/Substance Use Hx Alcohol Use: No - Smoking History Smoking history: Never smoked Have you smoked in the past 12 months: No <Pedro Lucio - Last Filed: 06/27/20 19:24> - History of Present Illness History of Present Illness: Mr. Llamas is a pleasant 24 year old male with a pmh of AVNRT s/p ablation [address] [facility], paroxysmal AF since age 18 (no prior dccv) who presents for evaluation due to recurrent palpitations, found to have AF with RVR. The patient was found to be in AF with RVR and is presently on digoxin and cardizem gtt with adequate rate control at this time. He was previously treated with flecainide as an outpt but states it was stopped in 2015 for unclear reasons. He states that his AF usually starts with cold liquids. During this most recent event, the patient states that he ran out of his eliquis and toprol xl for about 1 week. A few days ago, 06/23/2020, the patient states that he was having ice cream and subsequently developed symptoms. He presented to the ER for evaluation. Echo has demonstrated normal LVEF, borderline LAE. He denies any known history of sleep apnea. Thyroid function wnl. He denies any chest pain, dyspnea, near or true syncope. Palpitations have improved. - History Source Limitations to Obtaining History: No Limitations <Blaine Velez V - Last Filed: 06/27/20 21:25> Home Medications <Pedro Lucio - Last Filed: 06/27/20 19:24> <Blaine Velez V - Last Filed: 06/27/20 21:25> - Allergies Allergies/Adverse Reactions: Allergies Allergy/AdvReac Type Severity Reaction Status Date / Time No Known Allergies Allergy Verified 06/23/20 13:01 - Home Medications Home Medications: Ambulatory Orders Apixaban [Eliquis -] 5 mg PO BID 30 Days #60 tablet 01/13/20 Metoprolol Succinate [Toprol XL -] 50 mg PO DAILY 30 Days #30 tab.sr.24h 01/13/20 Family Medical History Family Hx Cardiac Disorders: Grandmother (paternal) Family Hx Diabetes: Father <Pedro Lucio - Last Filed: 06/27/20 19:24> Review of Systems - Review of Systems Cardiovascular: reports: Palpitations. denies: Chest Pain, Shortness of Breath Respiratory: denies: Orthopnea, PND, SOB Neurological: denies: Confusion, Dizziness, Syncope <Pedro Lucio - Last Filed: 06/27/20 19:24> Vital Signs: Vital Signs Temperature 98.1 F 06/27/20 17:53 Pulse Rate 101 H 06/27/20 17:53 Respiratory Rate 06/27/20 17:53 Blood Pressure 100/64 06/27/20 17:53 O2 Sat by Pulse Oximetry (%) 96 06/27/20 17:53 Constitutional: Yes: Well Nourished, No Distress, Calm Eyes: Yes: Conjunctiva Clear, EOM Intact HENT: Yes: Atraumatic, Normocephalic Neck: Yes: Supple, Trachea Midline Respiratory: Yes: CTA Bilaterally. No: Accessory Muscle Use Gastrointestinal: Yes: Soft. No: Distention Cardiovascular: Yes: Pulse Irregular. No: Regular Rate and Rhythm JVD: No Heart Sounds: Yes: S1, S2 Murmur: No: Systolic Murmur, Diastolic Murmur Extremities: Yes: WNL - Other Data Labs, Other Data: CBC, [facility] 06/27/20 11:10 06/27/20 11:10 INR, PTT INR 1.08 (0.83-1.09) 06/23/20 13:19 <Pedro Lucio - Last Filed: 06/27/20 19:24> Vital Signs: Vital Signs Temperature 98.1 F 06/27/20 17:53 Pulse Rate 101 H 06/27/20 17:53 Respiratory Rate 06/27/20 17:53 Blood Pressure 100/64 06/27/20 17:53 O2 Sat by Pulse Oximetry (%) 96 06/27/20 17:53 Edema: No Neurological: Yes: Alert, Oriented Psychiatric: Yes: Alert, Oriented - Other Data Labs, Other Data: CBC, BMP 06/27/20 11:10 06/27/20 11:10 INR, PTT INR 1.08 (0.83-1.09) 06/23/20 13:19 Echo: Report Reviewed Ejection Fraction %: LVEF > or = 40 % <Blaine Velez V - Last Filed: 06/27/20 21:25> Imaging - Results EKG: Image Reviewed <Blaine Velez V - Last Filed: 06/27/20 21:25> Problem List - Problems (1) Palpitations Code(s): R00.2 - PALPITATIONS (2) AVNRT (AV kusum re-entry tachycardia) Code(s): I47.1 - SUPRAVENTRICULAR TACHYCARDIA (3) Atrial fibrillation with RVR Code(s): I48.91 - UNSPECIFIED ATRIAL FIBRILLATION <Blaine Velez V - Last Filed: 06/27/20 21:25> Assessment/Plan 24 year old male, (followed as an outpatient by Dr. Gurmeet Luna, glove cleaner) with a PMHx of AVNRT s/p ablation in 2017, also history of paroxysmal atrial fibrillation on apixaban admitted now with rapid atrial fib rillation with HR's in the 170-180's after stopping his meds (includingToprol XL 50 mg daily) for about one week. Patient currently denies any chest pain, shortness of breath, or lightheadedness ER course was notable for: (1)inital HR 200; EKG shows afib with RVR; BP MAP 79 (2)wbc 10.5; Cr 0.9; trop neg x1 (3)received 15 IV of lopressor and 75 PO of metoprolol Echo 06/24/20: Patient was in afib during the exam. LV systolic function low normal. LVEF 50-55%. Normal RV. Borderline for LA dilatation. No significant valvular abnormalities. Patient currently on Digoxin 0.25, Metoprolol 100 bid, and Diltiazem drip. Still is not rate controlled. Patient is asymptomatic and hemodynamically stable. Plan: -NPO after midnight for tentative ARLEEN/Cardioversion with Dr Lora Olsen. Case discussed with Dr Velez (binding end stitcher.) - To d/c Diltiazem drip and start Flecainide 50 mg BID after Procedure. - Patient's [id number] does not warrant AC. Unclear as to why patient on Eliquis. <Pedro Lucio - Last Filed: 06/27/20 19:24> Patient seen and examined with Dr. Lucio. Rate improved control on present therapy. Remains on cardizem gtt. Symptoms improved. Appears cold liquid induced based on history. borderline LAE. normal LVEF. extensive conversation with the patient. pathophysiology of AF discussed. management and treatment options discussed. all questions answered. r/b/a discussed. case reviewed with pt's primary glove cleaner Dr. Luna and referring Dr. Trejo. patient with PAF, no prior DCCV. prior ablation for AVNRT. previously on flecainide. covid neg. discussed arleen-guided DCCV with the patient given his being off eliquis for about 1 week prior to admission. although his devvo2wcta is 0, because of the plan for dccv, would recommend ruling out YONIS thrombosis prior to electrical cardioversion. he will need to be maintained on eliquis for atleast 4-6 weeks post dccv. the patient states that he will have enough medication at home. no significant pauses on telemetry. - npo after midnight for arleen guided dccv tomorrow. - keep k 4-4.5, mg 2-2.5 - d/c digoxin - avoid inciting agents - outpt evaluation for JUSTEN - likely plan to start toprol xl and flecainide post dccv tomorrow. likely plan to start toprol 25 mg po daily and flecainide 50 q12 but will wait for heart rate in sinus. - will arrange for outpt event monitoring for further evaluation post dccv - care as per primary services Time spent: 61 minutes Thank you for allowing me to participate in the care of this patient. Please call with any questions. <Blaine Velez V - Last Filed: 06/27/20 21:25>
--- NOTE | 2020-06-27 21:14 | PN ---
Physical Exam: SUBJECTIVE: Patient seen and examined. Pt. dneies any acute complaints at the moment. Pt. continues to endorse chest pressure associated with increased activity. OBJECTIVE: Vital Signs Period Temp Pulse Resp BP Sys/Ryan Pulse Ox Last 24 Hr 97.7 F-98.4 F 94-148 18-20 95-113/50-70 96-99 GENERAL: The patient is awake, alert, and fully oriented, in no acute distress. HEAD: Normal with no signs of trauma. EYES: Sclera anicteric, conjunctiva clear. ENT: Moist mucous membranes. NECK: Trachea midline, full range of motion, supple. LUNGS: Breath sounds equal, clear to auscultation bilaterally, no wheezes, no crackles, no accessory muscle use. HEART: Regular rate and rhythm, S1, S2 without murmur EXTREMITIES: 2+ dorsal pedal pulses, warm, well-perfused,no calf tenderness, no edema. NEUROLOGICAL: Moves all extremities, Normal speech, gait not observed. PSYCH: Normal mood, normal affect. SKIN: Warm, dry, normal turgor, no rashes or lesions noted Laboratory Results - last 24 hr 06/27/20 06/27/20 11:10 11:10 WBC 11.9 H RBC 5.60 Hgb 15.4 Hct 45.9 MCV 81.9 MCH 27.5 MCHC 33.6 RDW 13.6 Plt Count 256 MPV 10.2 Absolute Neuts (auto) 6.9 Neutrophils % 58.4 Lymphocytes % 29.3 Monocytes % 9.6 Eosinophils % 2.0 Basophils % 0.7 Nucleated RBC % 0 Sodium 139 Potassium 4.1 Chloride 106 Carbon Dioxide 27 Anion Gap 6 L BUN 16.0 Creatinine 0.9 Est GFR (CKD-EPI)AfAm 138.06 Est GFR (CKD-EPI)NonAf 119.12 Random Glucose 69 L Calcium 9.3 Phosphorus 4.1 Magnesium 2.1 Total Bilirubin 1.0 AST 33 ALT 88 H Alkaline Phosphatase 88 Total Protein 7.4 Albumin 3.8 Active Medications Generic Name Dose Route Start Last Admin Trade Name Freq PRN Reason Stop Dose Admin Apixaban 5 mg 06/25/20 22:00 06/27/20 09:48 Eliquis - PO 5 mg BID MELODY Administration Digoxin 0.25 mg 06/25/20 17:00 06/27/20 09:48 Lanoxin - PO 0.25 mg DAILY MELODY Administration Diltiazem HCl 125 mg/ Sodium 125 mls @ 5 mls/hr 06/27/20 09:15 06/27/20 10:40 Chloride IVPB 5 mg/hr TITR MELODY 5 mls/hr Administration Protocol 5 MG/HR Metoprolol Tartrate 100 mg 06/25/20 16:53 06/27/20 09:48 Lopressor - PO 100 mg BID MELODY Administration Metoprolol Tartrate 5 mg 06/25/20 21:15 06/27/20 08:54 Lopressor Injection - IVPUSH 5 mg Q4H PRN Administration TACHYCARDIA (HR > 120) ASSESSMENT/PLAN: Pt. is a 24 y.o. M w/ PMHx. of Afib (diagnosed at age 18; s/p ablation in 2016 with recurrence in spring) and Hx. of Testicular CA? presents to the ED with complaints of chest pressure and palpitations found to be in Afib with RVR #Afib with RVR patient received a total of 15 IV lopressor and 75 PO -C/w Lopresor 100mg BID and Diltiazem gtt. Will convert to Flecainide 50mg BID after EP procedures (RAEGAN and DCCV) -IV lopressor PRN -c/w digoxin -cardio and EP consults appreciated -TSH wnl - Cardiac Enzymes neg x 2 -Eliquis 5mg BID, as per CHADVASC score of 1- low to moderate risk of bleeding. As Pt. has significant risks of thrombosis vs. minimal risk of bleeding especially given recent echo here, will c/w AC and defer to outpatient environmental conservation officer at this time, no evidence of bleeding -echo limited assessment, however with low-normal EF -tele monitoring #Transaminitis Isolated upward trending ALT, unclear why will continue to monitor, Pt. has no pain and no other elevated LFTs, is continuee to rise will order acute hepatitis panel and/or RUQ US #FEN not on fluids monitor electrolytes Sodium controlled diet, NPO after midnight #Dvt PPx eliquis #Dispo tele monitoring Visit type - Emergency Visit Emergency Visit: Yes ED Registration Date: 06/23/20 Care time: The patient presented to the Emergency Department on the above date and was hospitalized for further evaluation of their emergent condition. - New Patient This patient is new to me today: Yes Date on this admission: 06/27/20 - Critical Care Critical Care patient: No - Discharge Referral Referred to [facility] Med P.C.: No ATTENDING PHYSICIAN STATEMENT I saw and evaluated the patient. I reviewed the resident's note and discussed the case with the resident. I agree with the resident's findings and plan as documented. SUBJECTIVE: OBJECTIVE: ASSESSMENT AND PLAN:
[2020-06-28 06:50] LABS: BASO % 0.5 % (0-2.0); EOS % 1.3 % (0-4.5); HEMATOCRIT 45.4 % (35.4-49); HEMOGLOBIN 15.4 GM/dL (11.7-16.9); LYMPH % 31.5 % (8-40); MCH 27.7 pg (25.7-33.7); MCHC 33.8 g/dl (32.0-35.9); MEAN CELL VOLUME 81.8 fl (80-96); MEAN PLT VOLUME 10.2 fl (7.5-11.1); MONO % 8.2 % (3.8-10.2); NEUT % 58.5 % (42.8-82.8); PLATELET COUNT 220 K/MM3 (134-434); RBC 5.56 M/mm3 (4.00-5.60); RDW 13.6 % (11.9-15.9); WHITE BLOOD COUNT 10.7 K/mm3 (4.0-10.0)
[2020-06-28 07:23] LABS: ALBUMIN 3.8 g/dl (3.4-5.0); BILIRUBIN,TOTAL 0.8 mg/dL (0.2-1); BLOOD UREA NITROGEN 18.5 mg/dL (7-18); CALCIUM 9.2 mg/dL (8.5-10.1); MAGNESIUM 1.9 mg/dL (1.8-2.4); POTASSIUM 4.1 mmol/L (3.5-5.1); TOT PROT 7.3 g/dl (6.4-8.2)
--- NOTE | 2020-06-28 09:54 | PN ---
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) with a PMHx of AVNRT s/p ablation in 2017, also history of paroxysmal atrial fibrillation on apixaban admitted now with rapid atrial fibrillation with HR's in the 170-180's after stopping his meds (includingToprol XL 50 mg daily) for about one week - Current Medication List Current Medications: Active Medications Apixaban (Eliquis -) 5 mg PO BID [facility] Last Admin: 06/27/20 21:43 Dose: 5 mg Documented by: Digoxin (Lanoxin -) 0.25 mg PO DAILY [facility] Last Admin: 06/27/20 09:48 Dose: 0.25 mg Documented by: Diltiazem HCl 125 mg/ Sodium (Chloride) 125 mls @ 5 mls/hr IVPB TITR [facility]; Protocol Last Admin: 06/27/20 10:40 Dose: 5 mg/hr, 5 mls/hr Documented by: Metoprolol Tartrate (Lopressor -) 100 mg PO BID [facility] Last Admin: 06/27/20 21:43 Dose: 100 mg Documented by: Metoprolol Tartrate (Lopressor Injection -) 5 mg IVPUSH Q4H PRN PRN Reason: TACHYCARDIA (HR > 120) Last Admin: 06/27/20 08:54 Dose: 5 mg Documented by: - Objective Vital Signs: Vital Signs Temperature 97.7 F 06/28/20 06:00 Pulse Rate 93 H 06/28/20 06:00 Respiratory Rate 20 06/28/20 06:00 Blood Pressure 105/59 L 06/28/20 06:00 O2 Sat by Pulse Oximetry (%) 99 06/28/20 06:00 Constitutional: Yes: Well Nourished, No Distress, Calm Eyes: Yes: WNL, Conjunctiva Clear, EOM Intact HENT: Yes: WNL, Atraumatic, Normocephalic Neck: Yes: WNL, Supple, Trachea Midline Cardiovascular: Yes: Pulse Irregular, S1, S2 Respiratory: Yes: WNL, Regular, CTA Bilaterally Gastrointestinal: Yes: WNL, Normal Bowel Sounds, Soft Genitourinary: Yes: WNL Musculoskeletal: Yes: WNL Extremities: Yes: WNL Edema: No Peripheral Pulses WNL: Yes Integumentary: Yes: WNL Neurological: Yes: WNL, Alert, Oriented ...Motor Strength: WNL Psychiatric: Yes: WNL, Alert, Oriented Labs: CBC, BMP 06/28/20 06:18 06/28/20 06:18 INR, PTT INR 1.08 (0.83-1.09) 06/23/20 13:19 Assessment/Plan 24 year old male, (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 Ventricular rates are better controlled on metoprolol and Cardizem drip. The patient has been n.p.o. Plan is for RAEGAN/DCCV later today. is considering flecainide after cardioversion. May potentially go home tomorrow if remains stable. Stop digoxin Doing well.
[2020-06-28] MEDS: APIXABAN 5 MG TABLET PO SCH ×2 (10:19→21:39)
[2020-06-28] MEDS: METOPROLOL TARTRATE 50 MG TABLET (FP) PO SCH (10:19)
[2020-06-28] MEDS: DIGOXIN 0.25 MG TABLET (FP) PO SCH (10:19)
[2020-06-28] MEDS: DILTIAZEM INJECTION 125 MG in SODIUM CHLORIDE 100 ML IVPB SCH (10:53)
[2020-06-28] MEDS ORDERED: LIDOCAINE VISCOUS 2% ORAL/TOP 20 ML UNIT-DOSE CUP ONE (11:40)
--- NOTE | 2020-06-28 12:45 | PN ---
Teaching Attending Note Name of Resident: Chivo Ríos ATTENDING PHYSICIAN STATEMENT I saw and evaluated the patient. I reviewed the resident's note and discussed the case with the resident. I agree with the resident's findings and plan as documented. SUBJECTIVE: Seen and examined at bedside. Patient undergo cardioversion today. Patient in no acute distress, heart rate controlled. Digoxin stopped. Patient noted to have skin irritation on left arm at site of IV OBJECTIVE Last Vital Signs Temp Pulse Resp BP Pulse Ox 97.9 F 110 H 20 124/72 100 06/28/20 10:00 06/28/20 10:53 06/28/20 10:00 06/28/20 10:53 06/28/20 10:00 PE: Per resident note Labs/Imaging: reviewed ASSESSMENT/PLAN 24-year-old male with a history of AVNRT status post ablation in 2017 and proximal atrial fibrillation on apixaban admitted with Osmani harp with RVR after missing his medication for a week #A. fib with RVR Cardiology on board appreciate recommendations For RAEGAN/DCCV later today Digoxin stopped Flecainide being considered after cardioversion per Dr. Velez Continue metoprolol and Cardizem drip #Irritated skin at left elbow at IV site Possible reaction to medication versus mild infection Observe for several hours to see if it improves on its own, if worsens may require antibiotics or hydrocortisone depending on suspected etiology Dispo: Home tomorrow if tolerates procedure well
[2020-06-28] MEDS ORDERED: LIDOCAINE VISCOUS 2% ORAL/TOP 20 ML UNIT-DOSE CUP MM ONE (13:22)
--- NOTE | 2020-06-28 13:33 | PN ---
Teaching Attending Note Name of Resident: Chivo Ríos ATTENDING PHYSICIAN STATEMENT I saw and evaluated the patient. I reviewed the resident's note and discussed the case with the resident. I agree with the resident's findings and plan as documented. SUBJECTIVE: Patient seen and examined at bedside, still with Afib with RVR, Dilt drip started, Cardiology possibly considering DC cardioversion for refractory Afib w/ RVR. Patient denies symptoms currently. OBJECTIVE: Vital Signs Period Temp Pulse Resp BP Sys/Ryan Pulse Ox Last 24 Hr 98.2 F-98.2 F 95-145 18-20 102-129/53-91 98-100 GENERAL: The patient is awake, alert, and fully oriented, in no acute distress. HEENT NC/AT, EOMI, no JVD, dry MM, R eye w/ strabismus (chronic) and intermittent, neck supple LUNGS: CTAB, no crackles or wheezing HEART: Irregularly irregular, rapid rate 95-110BPM (on Diltiazem drip) ABDOMEN: Soft, nontender, nondistended, normoactive bowel sounds, no guarding, no rebound, no hepatosplenomegaly, no masses. EXTREMITIES: 2+ pulses, warm, well-perfused, no edema. NEUROLOGICAL: Cranial nerves II through XII grossly intact. Normal speech, gait not observed. PSYCH: Normal mood, normal affect. SKIN: Warm, dry, normal turgor, no rashes or lesions noted Vital Signs (72 hours) 06/25/20 06/25/20 06/25/20 14:00 17:20 21:00 Temperature 97.8 F Pulse Rate 130 H 160 H Respiratory Rate Blood Pressure 106/56 L O2 Sat by Pulse 99 Oximetry (%) 06/25/20 06/26/20 06/26/20 22:00 00:55 06:00 Temperature 98.6 F 98 F Pulse Rate 137 H 115 H 90 Respiratory 20 20 20 Rate Blood Pressure 120/85 106/68 103/71 O2 Sat by Pulse 99 Oximetry (%) 06/26/20 06/26/20 06/26/20 09:00 09:48 10:00 Temperature 97.7 F Pulse Rate 88 88 Respiratory 20 20 Rate Blood Pressure 109/59 L O2 Sat by Pulse 99 Oximetry (%) 08/30/20 08/30/20 08/30/20 14:00 17:49 17:58 Temperature 97.8 F 98.5 F Pulse Rate 87 160 H 140 H Respiratory 20 Rate Blood Pressure 109/61 126/76 126/76 O2 Sat by Pulse 99 Oximetry (%) 06/26/20 06/26/20 06/27/20 21:00 22:00 02:00 Temperature 98.4 F 98.4 F Pulse Rate 125 H 99 H Respiratory 20 18 Rate Blood Pressure 106/54 L 113/61 O2 Sat by Pulse 99 96 99 Oximetry (%) 06/27/20 06/27/20 06/27/20 05:59 08:54 09:00 Temperature 97.7 F Pulse Rate 148 H 140 H 115 H Respiratory 18 18 Rate Blood Pressure 104/50 L 109/60 109/60 O2 Sat by Pulse 97 Oximetry (%) 06/27/20 06/27/20 06/27/20 09:48 10:40 10:48 Temperature Pulse Rate 120 H 102 H 102 H Respiratory 18 Rate Blood Pressure 98/54 L 98/54 L O2 Sat by Pulse Oximetry (%) 06/27/20 06/27/20 06/27/20 10:49 12:51 14:12 Temperature 98.0 F Pulse Rate 94 H 98 H 99 H Respiratory 18 18 18 Rate Blood Pressure 105/64 108/70 95/59 L O2 Sat by Pulse 96 Oximetry (%) 06/27/20 06/27/20 06/28/20 17:53 21:00 01:00 Temperature 98.1 F 97.6 F 97.7 F Pulse Rate 101 H 98 H 98 H Respiratory 20 20 20 Rate Blood Pressure 100/64 106/71 102/69 O2 Sat by Pulse 96 100 99 Oximetry (%) 06/28/20 06/28/20 06/28/20 06:00 09:00 10:00 Temperature 97.7 F 97.9 F Pulse Rate 93 H 100 H Respiratory 20 20 Rate Blood Pressure 105/59 L 124/72 O2 Sat by Pulse 99 100 100 Oximetry (%) 06/28/20 06/28/20 10:19 10:53 Temperature Pulse Rate 87 110 H Respiratory Rate Blood Pressure 124/72 O2 Sat by Pulse Oximetry (%) Laboratory Results - last 24 hr 06/28/20 06/28/20 06:18 06:18 WBC 10.7 H RBC 5.56 Hgb 15.4 Hct 45.4 MCV 81.8 MCH 27.7 MCHC 33.8 RDW 13.6 Plt Count 220 MPV 10.2 Absolute Neuts (auto) 6.2 Neutrophils % 58.5 Lymphocytes % 31.5 Monocytes % 8.2 Eosinophils % 1.3 Basophils % 0.5 Nucleated RBC % 0 Sodium 141 Potassium 4.1 Chloride 108 H Carbon Dioxide 27 Anion Gap 7 L BUN 18.5 H Creatinine 1.0 Est GFR (CKD-EPI)AfAm 121.55 Est GFR (CKD-EPI)NonAf 104.88 Random Glucose 74 Calcium 9.2 Magnesium 1.9 Total Bilirubin 0.8 AST 27 ALT 82 H Alkaline Phosphatase 87 Total Protein 7.3 Albumin 3.8 Home Medications Medication Instructions Recorded Apixaban [Eliquis -] 5 mg PO BID 30 Days #60 tablet 01/13/20 Metoprolol Succinate [Toprol XL -] 50 mg PO DAILY 30 Days #30 01/13/20 tab.sr.24h Current Medications Generic Name Dose Route Start Last Admin Trade Name Freq PRN Reason Stop Dose Admin Apixaban 5 mg 06/25/20 22:00 06/28/20 10:19 Eliquis - PO 5 mg BID MELODY Administration Digoxin 0.25 mg 06/25/20 17:00 06/28/20 10:19 Lanoxin - PO 0.25 mg DAILY MELODY Administration Diltiazem HCl 125 mg/ Sodium 125 mls @ 5 mls/hr 06/27/20 09:15 06/28/20 10:53 Chloride IVPB 5 mg/hr TITR MELODY 5 mls/hr Administration Protocol 5 MG/HR Metoprolol Tartrate 100 mg 06/25/20 16:53 06/28/20 10:19 Lopressor - PO 100 mg BID MELODY Administration Metoprolol Tartrate 5 mg 06/25/20 21:15 06/27/20 08:54 Lopressor Injection - IVPUSH 5 mg Q4H PRN Administration TACHYCARDIA (HR > 120) ASSESSMENT AND PLAN: 24 M Afib with RVR on AC s/p ablation in the past unsuccessful HTN HLD Mild cognitive dysfunction Plan: Cont. Elqiuis for Afib Cont. Diltiazem drip for titration of HR/BP Cont. Toprol at current dose, check Digoxin levels in AM Tele monitoring Cardiology following, they may consider cardioverting patient if remains in RVR COVID negative
--- NOTE | 2020-06-28 14:34 | PN ---
Progress Note, Physician History of Present Illness: Mr. Llamas is a pleasant 24 year old male with a pmh of AVNRT s/p ablation 2016 at [facility], paroxysmal AF since age 18 (no prior dccv) who presents for evaluation due to recurrent palpitations, found to have AF with RVR with HR's in the 170-180's after stopping his meds (including Toprol XL 50 mg daily) for about one week. Mr. Llamas was treated with IV dilt with improved VR control. Metoprolol and digoxin were added as well which have now been discontinued. Patient is s/p successful DCCV with Dr Lora Olsen. Physical Exam: AAOx3 NAD, Resting comfortably in bed RRR No MRG S1S2 Clear to auscultation Bilaterally Soft NDNT No CCE - Current Medication List Current Medications: Active Medications Apixaban (Eliquis -) 5 mg PO BID [facility] Last Admin: 06/28/20 10:19 Dose: 5 mg Documented by: Flecainide Acetate (Tambacor -) 50 mg PO BID [facility] Metoprolol Succinate (Toprol Xl -) 50 mg PO DAILY [facility] Metoprolol Tartrate (Lopressor -) 100 mg PO BID [facility] Last Admin: 06/28/20 10:19 Dose: 100 mg Documented by: Metoprolol Tartrate (Lopressor Injection -) 5 mg IVPUSH Q4H PRN PRN Reason: TACHYCARDIA (HR > 120) Last Admin: 06/27/20 08:54 Dose: 5 mg Documented by: - Objective Vital Signs: Vital Signs Temperature 98 F 06/28/20 13:35 Pulse Rate 82 06/28/20 14:20 Respiratory Rate 21 H 06/28/20 14:20 Blood Pressure 115/66 06/28/20 14:20 O2 Sat by Pulse Oximetry (%) 100 06/28/20 14:20 Labs: CBC, BMP 06/28/20 06:18 06/28/20 06:18 INR, PTT INR 1.08 (0.83-1.09) 06/23/20 13:19 <Pedro Lucio - Last Filed: 06/28/20 14:46> - Current Medication List Current Medications: Active Medications Apixaban (Eliquis -) 5 mg PO BID [facility] Last Admin: 06/28/20 10:19 Dose: 5 mg Documented by: Flecainide Acetate (Tambacor -) 50 mg PO BID MELODY Hydrocortisone (Hytone 1% Cream -) 1 applic TP DAILY PRN PRN Reason: FOR ITCHING Last Admin: 06/28/20 17:39 Dose: 1 applic Documented by: Metoprolol Succinate (Toprol Xl -) 50 mg PO DAILY MELODY Metoprolol Tartrate (Lopressor Injection -) 5 mg IVPUSH Q4H PRN PRN Reason: TACHYCARDIA (HR > 120) Last Admin: 06/27/20 08:54 Dose: 5 mg Documented by: - Objective Vital Signs: Vital Signs Temperature 97.3 F L 06/28/20 17:24 Pulse Rate 85 06/28/20 17:24 Respiratory Rate 20 06/28/20 17:24 Blood Pressure 107/66 06/28/20 17:24 O2 Sat by Pulse Oximetry (%) 98 06/28/20 14:36 Labs: CBC, BMP 06/28/20 06:18 06/28/20 06:18 INR, PTT INR 1.08 (0.83-1.09) 06/23/20 13:19 <Blaine Velez V - Last Filed: 06/28/20 21:09> Problem List - Problems (1) AVNRT (AV kusum re-entry tachycardia) Code(s): I47.1 - SUPRAVENTRICULAR TACHYCARDIA (2) Atrial fibrillation with RVR Code(s): I48.91 - UNSPECIFIED ATRIAL FIBRILLATION <Blaine Velez V - Last Filed: 06/28/20 21:09> Assessment/Plan Mr. Llamas is a pleasant 24 year old male with a pmh of AVNRT s/p ablation 2016 at [facility], paroxysmal AF since age 18 (no prior dccv) who presents for evaluation due to recurrent palpitations, found to have AF with RVR with HR's in the 170-180's after stopping his meds (including Toprol XL 50 mg daily) for about one week. 1. Atrial Fibrillation with RVR. -POD#0 Successful RAEGAN/DCCV with Dr Lora Olsen. - EKG NSR HR 80s, BP 115/70, satting at 98%. PLAN: -Flecainide 50 mg PO BID -Toprol XL 50 Daily -Eliquis 5 mg PO BID -Patient to follow up with his Skip Hoist Operator, Dr Gurmeet Luna and Dr Velez (materials planning analyst). Likely d/c in am if no events overnight. Case discussed with Dr Velez. <Pedro Lucio - Last Filed: 06/28/20 14:46> Agree with above Now in NSR s/p RAEGAN guided DCCV. Feeling better. Plan as above Repeat EKG in am Likely d/c tomorrow <Blaine Velez V - Last Filed: 06/28/20 21:09>
[2020-06-28] MEDS ORDERED: HYDROCORTISONE 1% TOPICAL CREAM 30 GM TUBE TP PRN (16:05)
[2020-06-28] MEDS ORDERED: diphenhydrAMINE HCL 25 MG CAPSULE (FP) PO ONE (16:05)
--- NOTE | 2020-06-28 16:15 | PN ---
Physical Exam: SUBJECTIVE: Patient seen and examined. Pt. denies any complaints at this time. Later in the day Pt. noted to have LUE antecubital fossa eryth OBJECTIVE: Vital Signs Period Temp Pulse Resp BP Sys/Ryan Pulse Ox Last 24 Hr 97.6 F-98.1 F 62-110 17-21 95-124/55-72 96-100 GENERAL: The patient is awake, alert, and fully oriented, in no acute distress. HEAD: Normal with no signs of trauma. EYES: Sclera anicteric, conjunctiva clear. ENT: Moist mucous membranes. NECK: Trachea midline, full range of motion, supple. LUNGS: Breath sounds equal, clear to auscultation bilaterally, no wheezes, no crackles, no accessory muscle use. HEART: Regular rate and rhythm, S1, S2 without murmur EXTREMITIES: 2+ dorsal pedal pulses, warm, well-perfused,no calf tenderness, no edema. LUE has area of erthyema and tenderness around, marked with marker NEUROLOGICAL: Moves all extremities, Normal speech, gait not observed. PSYCH: Normal mood, normal affect. SKIN: Warm, dry, normal turgor, no rashes or lesions noted Laboratory Results - last 24 hr 06/28/20 06/28/20 06:18 06:18 WBC 10.7 H RBC 5.56 Hgb 15.4 Hct 45.4 MCV 81.8 MCH 27.7 MCHC 33.8 RDW 13.6 Plt Count 220 MPV 10.2 Absolute Neuts (auto) 6.2 Neutrophils % 58.5 Lymphocytes % 31.5 Monocytes % 8.2 Eosinophils % 1.3 Basophils % 0.5 Nucleated RBC % 0 Sodium 141 Potassium 4.1 Chloride 108 H Carbon Dioxide 27 Anion Gap 7 L BUN 18.5 H Creatinine 1.0 Est GFR (CKD-EPI)AfAm 121.55 Est GFR (CKD-EPI)NonAf 104.88 Random Glucose 74 Calcium 9.2 Magnesium 1.9 Total Bilirubin 0.8 AST 27 ALT 82 H Alkaline Phosphatase 87 Total Protein 7.3 Albumin 3.8 Active Medications Generic Name Dose Route Start Last Admin Trade Name Freq PRN Reason Stop Dose Admin Apixaban 5 mg 06/25/20 22:00 06/28/20 10:19 Eliquis - PO 5 mg BID MELODY Administration Flecainide Acetate 50 mg 06/28/20 22:00 Tambacor - PO BID MELODY Hydrocortisone 1 applic 06/28/20 16:05 Hytone 1% Cream - TP DAILY PRN FOR ITCHING Metoprolol Succinate 50 mg 06/29/20 10:00 Toprol Xl - PO DAILY MELODY Metoprolol Tartrate 5 mg 06/25/20 21:15 06/27/20 08:54 Lopressor Injection - IVPUSH 5 mg Q4H PRN Administration TACHYCARDIA (HR > 120) ASSESSMENT/PLAN: Pt. is a 24 y.o. M w/ PMHx. of Afib (diagnosed at age 18; s/p ablation in 2016 with recurrence in spring) and Hx. of Testicular CA? presents to the ED with complaints of chest pressure and palpitations found to be in Afib with RVR #Afib with RVR -s/p DCCV 06/28/20 -D/c Lopresor 100mg BID and Diltiazem gtt. Start Flecainide 50mg BID -IV lopressor PRN -d/c digoxin, Start Toprol 50mg XL -cardio and EP consults appreciated -TSH wnl - Cardiac Enzymes neg x 2 -Eliquis 5mg BID, as per CHADVASC score of 1- low to moderate risk of bleeding. As Pt. has significant risks of thrombosis vs. minimal risk of bleeding especially given recent echo here, will c/w AC and defer to outpatient campus supervisor at this time, no evidence of bleeding -echo limited assessment, however with low-normal EF -tele monitoring #Transaminitis -Isolated upward trending ALT, unclear why---> stabilized to 82 will continue to monitor, possibly side effect of medication will continue to monitor, Pt. has no pain and no other elevated LFTs, is continue to rise will order acute hepatitis panel and/or RUQ US #Erythema and tenderness -noticed reaction at site of IV this AM, unchanged since AM to PM, Given PO benadryl and hydrocortisone cream to site. #FEN -not on fluids -monitor electrolytes -Sodium controlled diet #Dvt PPx -eliquis #Dispo -tele monitoring --> For D/C in AM Visit type - Emergency Visit Emergency Visit: Yes ED Registration Date: 06/23/20 Care time: The patient presented to the Emergency Department on the above date and was hospitalized for further evaluation of their emergent condition. - New Patient This patient is new to me today: No - Critical Care Critical Care patient: No - Discharge Referral Referred to [facility] Med P.C.: No ATTENDING PHYSICIAN STATEMENT I saw and evaluated the patient. I reviewed the resident's note and discussed the case with the resident. I agree with the resident's findings and plan as documented. SUBJECTIVE: OBJECTIVE: ASSESSMENT AND PLAN:
--- NOTE | 2020-06-28 16:23 | EKG ---
Test Reason : Blood Pressure : / mmHG Vent. Rate : 075 BPM Atrial Rate : 075 BPM P-R Int : 156 ms QRS Dur : 086 ms QT Int : 352 ms P-R-T Axes : 050 030 005 degrees QTc Int : 393 ms NORMAL SINUS RHYTHM LEFT ATRIAL ENLARGEMENT LEFT VENTRICULAR HYPERTROPHY NONSPECIFIC ST ABNORMALITY ABNORMAL ECG Confirmed by MD MARIO, ANSELMO ([id number]) on 06/28/2020 4:23:01 PM Referred By: Elvia ALCALA Confirmed By:ANSELMO MARTIN MD
--- NOTE | 2020-06-28 17:26 | PN ---
Progress Note (short form) - Note Progress Note: Procedure Note: RAEGAN and Synchronized Cardioversion Risks and benefits were discussed with patient. Consent was obtained Preliminary result of RAEGAN 1. Normal LV systolic function 2. Trace to mild MR 3. Trace to mild TR 4. No mass or thrombus in LA or LA appendage 5. No evidence of intracardiac shunt via color Doppler and agitated saline injection 6. No atherosclerotic plaques in thoracic aorta or aortic arch 7. No pericardial effusion Successful synchronized cardioversion to sinus rhythm with 120 J Obtain 12 lead ECG Official report to follow Dr. Velez notified Marlo Olsen MD
[2020-06-28] MEDS ORDERED: PT OWN MED DRAWER 7, Y5N ONE ×2 (21:28→21:29)
[2020-06-28] MEDS: FLECAINIDE ACETATE 100 MG TABLET PO SCH (21:39)
--- NOTE | 2020-06-29 08:46 | PN ---
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, oil bay technician) with a PMHx of AVNRT s/p ablation in 2017, also history of paroxysmal atrial fibrillation on apixaban admitted now with rapid atrial fibrillation with HR's in the 170-180's after stopping his meds (includingToprol XL 50 mg daily) for about one week The patient is currently status post RAEGAN/DCCV. In sinus rhythm. No other episodes of atrial fibrillation noted on telemetry. The patient was started on flecainide 50 mg twice daily. He is comfortable and offers no specific complaints. He claims that he is feeling significantly better. No further palpitations. - Current Medication List Current Medications: Active Medications Apixaban (Eliquis -) 5 mg PO BID [facility] Last Admin: 06/28/20 21:39 Dose: 5 mg Documented by: Flecainide Acetate (Tambacor -) 50 mg PO BID [facility] Last Admin: 06/28/20 21:39 Dose: 50 mg Documented by: Hydrocortisone (Hytone 1% Cream -) 1 applic TP DAILY PRN PRN Reason: FOR ITCHING Last Admin: 06/28/20 17:39 Dose: 1 applic Documented by: Metoprolol Succinate (Toprol Xl -) 50 mg PO DAILY [facility] Metoprolol Tartrate (Lopressor Injection -) 5 mg IVPUSH Q4H PRN PRN Reason: TACHYCARDIA (HR > 120) Last Admin: 06/27/20 08:54 Dose: 5 mg Documented by: - Objective Vital Signs: Vital Signs Temperature 97.8 F 06/29/20 06:00 Pulse Rate 95 H 06/29/20 06:00 Respiratory Rate 18 06/29/20 06:00 Blood Pressure 110/67 06/29/20 06:00 O2 Sat by Pulse Oximetry (%) 97 06/29/20 06:00 Constitutional: Yes: Well Nourished, No Distress, Calm Eyes: Yes: WNL, Conjunctiva Clear, EOM Intact HENT: Yes: WNL, Atraumatic, Normocephalic Neck: Yes: WNL, Supple, Trachea Midline Cardiovascular: Yes: WNL, Regular Rate and Rhythm, S1, S2 Respiratory: Yes: WNL, Regular, CTA Bilaterally Gastrointestinal: Yes: WNL, Normal Bowel Sounds, Soft ...Rectal Exam: Yes: Deferred Genitourinary: Yes: WNL Breast(s): Yes: WNL Musculoskeletal: Yes: WNL Extremities: Yes: WNL Edema: No Peripheral Pulses WNL: Yes Integumentary: Yes: WNL Neurological: Yes: WNL, Alert, Oriented ...Motor Strength: WNL Psychiatric: Yes: WNL, Alert, Oriented Labs: CBC, BMP 06/28/20 06:18 06/28/20 06:18 INR, PTT INR 1.08 (0.83-1.09) 06/23/20 13:19 Assessment/Plan 24 year old male, (followed as an outpatient by Dr. Gurmeet Luan, oil bay technician) with a PMHx of AVNRT s/p ablation in 2017, also history of paroxysmal atrial fibrillation on apixaban admitted now with rapid atrial fibrillation with HR's in the 170-180's after stopping his meds (includingToprol XL 50 mg daily) for about one week The patient is currently status post RAEGAN/DCCV. In sinus rhythm. No other episodes of atrial fibrillation noted on telemetry. The patient was started on flecainide 50 mg twice daily. He is comfortable and offers no specific complaints. He claims that he is f eeling significantly better. No further palpitations. Please continue current regimen. Please arrange for an outpatient follow-up visit with Dr. Luna and Dr. Velez. The patient is ready for discharge. Please do not hesitate to call us PRN.
--- NOTE | 2020-06-29 09:03 | PN ---
Progress Note, Physician History of Present Illness: Mr. Llamas is a pleasant 24 year old male with a pmh of AVNRT s/p ablation 2016 at [facility], paroxysmal AF since age 18 (no prior dccv) who presents for evaluation due to recurrent palpitations, found to have AF with RVR with HR's in the 170-180's after stopping his meds (including Toprol XL 50 mg daily) for about one week. Mr. Llamas was treated with IV dilt with improved VR control. Metoprolol and digoxin were added as well which have now been discontinued. Patient is POD#[address] Lora Olsen. Physical Exam: No acute distress AAOx3 Regular rate and rhythm. No murmurs, rubs, or gallops Clear to auscultation bilaterally. No wheezing, rhonchi, or rales Abdomen soft and nondistended No CCE - Current Medication List Current Medications: Active Medications Apixaban (Eliquis -) 5 mg PO BID [facility] Last Admin: 06/28/20 21:39 Dose: 5 mg Documented by: Flecainide Acetate (Tambacor -) 50 mg PO BID [facility] Last Admin: 06/28/20 21:39 Dose: 50 mg Documented by: Hydrocortisone (Hytone 1% Cream -) 1 applic TP DAILY PRN PRN Reason: FOR ITCHING Last Admin: 06/28/20 17:39 Dose: 1 applic Documented by: Metoprolol Succinate (Toprol Xl -) 50 mg PO DAILY [facility] Metoprolol Tartrate (Lopressor Injection -) 5 mg IVPUSH Q4H PRN PRN Reason: TACHYCARDIA (HR > 120) Last Admin: 06/27/20 08:54 Dose: 5 mg Documented by: - Objective Vital Signs: Vital Signs Temperature 97.8 F 06/29/20 06:00 Pulse Rate 95 H 06/29/20 06:00 Respiratory Rate 18 06/29/20 06:00 Blood Pressure 110/67 06/29/20 06:00 O2 Sat by Pulse Oximetry (%) 97 06/29/20 06:00 Labs: CBC, BMP 06/28/20 06:18 06/28/20 06:18 INR, PTT INR 1.08 (0.83-1.09) 06/23/20 13:19 <Pedro Lucio - Last Filed: 06/29/20 09:23> - Objective Vital Signs: Vital Signs Temperature 98.5 F 06/29/20 10:00 Pulse Rate 93 H 06/29/20 10:00 Respiratory Rate 18 06/29/20 10:00 Blood Pressure 103/61 06/29/20 10:00 O2 Sat by Pulse Oximetry (%) 98 06/29/20 10:00 Labs: CBC, BMP 06/28/20 06:18 06/28/20 06:18 INR, PTT INR 1.08 (0.83-1.09) 06/23/20 13:19 <Blaine Velez V - Last Filed: 07/02/20 13:26> Problem List - Problems (1) AVNRT (AV kusum re-entry tachycardia) Code(s): I47.1 - SUPRAVENTRICULAR TACHYCARDIA (2) Atrial fibrillation with RVR Code(s): I48.91 - UNSPECIFIED ATRIAL FIBRILLATION <Blaine Velez V - Last Filed: 07/02/20 13:26> Assessment/Plan Mr. Llamas is a pleasant 24 year old male with a pmh of AVNRT s/p ablation 2016 at [facility], paroxysmal AF since age 18 (no prior dccv) who presents for evaluation due to recurrent palpitations, found to have AF with RVR with HR's in the 170-180's after stopping his meds (including Toprol XL 50 mg daily) for about one week. 1. Atrial Fibrillation with RVR. -POD#1 Successful RAEGAN/DCCV with Dr Lora Olsen. - EKG this morning (06/29) reveals NSR @ 89 bpm -No acute events overnight. PLAN: -Flecainide 50 mg PO BID -Toprol XL 50 Daily -Eliquis 5 mg PO BID -Patient to follow up with his Cream Separator Operator, Dr Gurmeet Luna and Dr Velez (dental equipment repairer). Patient also given referral to our resident clinic as he has no PCP. -Patient will also need a sleep apnea evaluation as an outpatient. Case discussed with Dr Velez. Patient is clear to be discharged from EP standpoint. <Pedro Lucio - Last Filed: 06/29/20 09:23> s/p dccv. doing well. no recurrence on telemetry. feeling well. - c/w present therapy - will need continue eliquis for about 4 weeks post dccv - will f/u as outpt for further monitoring and care - sleep study as outpt Thank you for allowing me to participate in the care of this patient. Please call with any questions. <Blaine Velez V - Last Filed: 07/02/20 13:26>
[2020-06-29] MEDS ORDERED: PT OWN MED DRAWER 7, Y5N ONE (09:23)
[2020-06-29] MEDS: APIXABAN 5 MG TABLET PO SCH (10:06)
[2020-06-29] MEDS: FLECAINIDE ACETATE 100 MG TABLET PO SCH (10:07)
[2020-06-29 10:21] VITALS: BP 103/61; PULSE 93; TEMP 98.5
--- NOTE | 2020-06-29 12:31 | PN ---
Teaching Attending Note Name of Resident: Chivo Ríos ATTENDING PHYSICIAN STATEMENT I saw and evaluated the patient. I reviewed the resident's note and discussed the case with the resident. I agree with the resident's findings and plan as documented. SUBJECTIVE: Seen and examined at bedside. Patient tolerated cardioversion well yesterday. No events overnight. Medically cleared for discharge. OBJECTIVE Last Vital Signs Temp Pulse Resp BP Pulse Ox 98.5 F 93 H 18 103/61 98 06/29/20 10:00 06/29/20 10:06/29/20 10:00 06/29/20 10:06/29/20 10:00 PE: Per resident note Labs/Imaging: reviewed ASSESSMENT/PLAN 24-year-old male with past medical history of AVNRT status post ablation in 2017 and paroxysmal atrial fibrillation on apixaban admitted with Osmani harp with RVR after missing his medication for a week. Medical rate control and cardioversion were unsuccessful and patient was successfully cardioverted. He will be discharged on metoprolol and flecainide and will follow-up with cardiology as an outpatient.
--- NOTE | 2020-06-29 13:10 | EKG ---
Test Reason : Blood Pressure : / mmHG Vent. Rate : 089 BPM Atrial Rate : 089 BPM P-R Int : 150 ms QRS Dur : 086 ms QT Int : 344 ms P-R-T Axes : 043 039 000 degrees QTc Int : 418 ms NORMAL SINUS RHYTHM LEFT VENTRICULAR HYPERTROPHY NONSPECIFIC ST ABNORMALITY ABNORMAL ECG Confirmed by MD MARIO, ANSELMO ([id number]) on 06/29/2020 1:10:35 PM Referred By: Confirmed By:ANSELMO MARTIN MD
--- NOTE | 2020-07-03 16:58 | DS ---
Physical Exam: SUBJECTIVE: Patient seen and examined. No acute events overnight. OBJECTIVE: PHYSICAL EXAM GENERAL: The patient is awake, alert, and fully oriented, in no acute distress. HEAD: Normal with no signs of trauma. EYES: Sclera anicteric, conjunctiva clear. ENT: Moist mucous membranes. NECK: Trachea midline, full range of motion, supple. LUNGS: Breath sounds equal, clear to auscultation bilaterally, no wheezes, no crackles, no accessory muscle use. HEART: Regular rate and rhythm, S1, S2 without murmur EXTREMITIES: 2+ dorsal pedal pulses, warm, well-perfused,no calf tenderness, no edema. LUE has decreased area of erthyema and decreased tenderness around, marked with marker NEUROLOGICAL: Moves all extremities, Normal speech, gait not observed. PSYCH: Normal mood, normal affect. SKIN: Warm, dry, normal turgor, no rashes or lesions noted LABS HOSPITAL COURSE: Date of Admission:06/23/20 Date of Discharge: 06/29/20 Pt. is a 24 yo make with a PMHx of Afib (dx at age 18, s/p ablation in 2015 which was unsuccessful) and testicular ca (2005) presented to the ED with complaints of chest pressure, palpitations, and SOB. He had not taken his afib meds for about a week since he had ran out of them. ED course was notable for initial HR 200, EKG showing afib with RVR, BP MAP 79, WBC 10.5, Cr 0.9, trop neg. He received 15 IV Lopressor and 75 PO of metoprolol. During admission, pt was given 50 po metoprolol BID, IV Lopressor PRN, and digoxin. His TSH was wnl, cardiac enzymes neg x 2, and cardio was consulted. He was given Eliquis 5 mg BID as per CHADVASC score of 1 (low to moderate risk of bleeding). Since the pt had significant risks of thrombosis vs the minimum risk of bleeding, he was c/w AC and deferred to outpatient cardio. Echo showed limited assessment with low- normal EF. On 06/28/20, we noticed a reaction at IV site which was unchanged from AM to PM. He was given PO Benadryl and hydrocortisone cream for it. Pt was given Eliquis for dvt ppx and put on a sodium controlled diet. Medicine adjustment and hospital follow-up is noted below. Pt is medically stabilized and discharged with recommendation to a rehab facility and then home to follow up with PCP and cardio as outpatient for further evaluation. Minutes to complete discharge: 25 Discharge Summary Problems reviewed: Yes Reason For Visit: ATRIAL FIBRILLATION WITH RAPID VENTRICULAR RESPONS Condition: Stable - Instructions Diet, Activity, Other Instructions: You came in for irregular HR. We treated you with IV medications to slow your HR but this did not work. We increased your medications but this did not work either. You were evaluated by a brake repair supervisor and by a fur grader. They performed a DCCV(direct cardioversion) and echo procedures to attempt to correct your irregular rhythm. We also made some changes to your medications. While you were here you were noted to have a IV site reaction. we treated it with Benadryl and topical steroid cream. Please stop taking Lopressor (Metoprolol tartrate) Please stop taking Digoxin Please START Toprol XL(Metoprolol Succinate) 50mg ONCE a Day Please START Flecainide 50mg EVERY 12 Hours Please continue your other home medications as they were prescribed -You have indicated you currently do not have a primary care doctor. You have been given a referral to follow with our medical clinic located at [address] [place] [address]. [phone] -Please follow up with Dr Luna, Human Resource Manager, in 1 week. -Please follow up with Dr Velez, the fur grader in 1 week. Please return to the ED if you are having chest pain, palpitations, shortness of breath or any other concerning symptoms. Referrals: [facility] [place] [facility] [place] [Provider Group] - 1 Week (Primary Care ) Blaine Velez MD [Staff Physician] - 1 Week (Tire Retreader) Gurmeet Luna MD [Non Staff, Medical] - 1 Week (Cardiology ) Disposition: HOME - Home Medications Comprehensive Discharge Medication List: Ambulatory Orders Apixaban [Eliquis -] 5 mg PO BID 30 Days #60 tablet 01/13/20 Apixaban [Eliquis -] 5 mg PO BID tablet 06/29/20 Flecainide Acetate [Flecainide Acetate -] 50 mg PO BID #60 tablet 06/29/20 Metoprolol Succinate [Toprol XL -] 50 mg PO DAILY 30 Days #30 tab.sr.24h 06/29/20 This patient is new to me today: No Emergency Visit: Yes ED Registration Date: 06/23/20 Care time: The patient presented to the Emergency Department on the above date and was hospitalized for further evaluation of their emergent condition. Critical Care patient: No - Discharge Referral Referred to [facility] Med P.C[facility] No ATTENDING PHYSICIAN STATEMENT I saw and evaluated the patient. I reviewed the resident's note and discussed the case with the resident. I agree with the resident's findings and plan as documented. SUBJECTIVE: OBJECTIVE: ASSESSMENT AND PLAN:
== END 2020-06-29 13:00 | disposition home or self-care (01) | DRG 201 ==
LOC: JER 12:49 → JERBED 17:04 → OBSVTOIN 17:04 → JICU 23:19 → J4W 06-24 20:41
PROVIDERS: ADMIT Student in an Organized Health Care Education/Training Program; ATTEND Internal Medicine
PROC: B24BZZ4 Ultrasonography of Heart with Aorta, Transesophageal (ICD-10-PCS; 2020-06-28)
PROC: 5A2204Z Restoration of Cardiac Rhythm, Single (ICD-10-PCS; principal; 2020-06-28 13:15)
DX: I48.19 Other persistent atrial fibrillation (principal); Z68.34 Body mass index [BMI] 34.0-34.9, adult; E66.9 Obesity, unspecified; T44.7X6A Underdosing of beta-adrenoreceptor antagonists, initial encounter; T45.516A Underdosing of anticoagulants, initial encounter; Z91.128 Patient's intentional underdosing of medication regimen for other reason; R74.0 Nonspecific elevation of levels of transaminase and lactic acid dehydrogenase [LDH]; R00.2 Palpitations
CPT/HCPCS: 36415; 71045-TC-FY; 80053; 80061; 80307; 81003; 82550; 82553; 83036; 83721; 83735; 84100; 84439; 84443; 84484; 85025; 85027; 85379; 85610; 85730; 93005; 93010; 93306-TC; 93312; 93325; 99285-25; U0003

== ENCOUNTER 2022-01-25 15:44 | Emergency (ER) | payer OTHER ==
[2022-01-25 15:51] VITALS: BP 148/94; PULSE 98; TEMP 98.3; BMI 35.2
[2022-01-25] MEDS ORDERED: LIDOCAINE HCL 5% TOP OINTMENT 50 GM TUBE TP ONE (16:40)
== END 2022-01-25 17:46 | disposition home or self-care (01) ==
LOC: JERFT 15:44 → JER 15:44 → JERFT 17:46
DX: K64.9 Unspecified hemorrhoids (principal)
CPT/HCPCS: 99283-25

== ENCOUNTER 2024-06-04 01:16 | Inpatient (IN) | payer BC, OTHER ==
[2024-06-04 01:21] VITALS: BMI 36.9
[2024-06-04] MEDS ORDERED: METOPROLOL TARTRATE 5 MG/5 ML VIAL ONE ×3 (01:46→03:03)
[2024-06-04] MEDS ORDERED: ACETAMINOPHEN INJECTION 100 ML IVPB ONE (01:46)
[2024-06-04] MEDS: METOPROLOL TARTRATE 5 MG/5 ML VIAL IVPUSH ONE ×3 (02:04→03:09)
[2024-06-04] MEDS: ACETAMINOPHEN 1000 MG/100 ML BAG IVPB ONE (02:04)
[2024-06-04] MEDS ORDERED: METOPROLOL TARTRATE 25 MG TABLET (FP) ONE (02:11)
[2024-06-04 02:18] LABS: BASO % 0.6 % (0-2.0); EOS % 1.8 % (0-4.5); HEMOGLOBIN 14.8 GM/dL (11.7-16.9); LYMPH % 30.9 % (8-40); MCH 27.5 pg (25.7-33.7); MCHC 33.6 g/dl (32.0-35.9); MEAN CELL VOLUME 81.9 fl (80-96); MEAN PLT VOLUME 9.7 fl (7.5-11.1); MONO % 10.1 % (3.8-10.2); NEUT % 56.6 % (42.8-82.8); PLATELET COUNT 227 10^3/uL (134-434); RBC 5.37 M/mm3 (4.00-5.60); RDW 13.7 % (11.9-15.9); WHITE BLOOD COUNT 9.3 K/mm3 (4.0-10.0)
[2024-06-04] MEDS: METOPROLOL TARTRATE 25 MG TABLET (FP) PO ONE (02:27)
[2024-06-04 02:28] LABS: INR 0.99 (0.83-1.09); PROTHROMBIN TIME (PATIENT) 11.4 SEC (9.7-13.0)
[2024-06-04 02:31] LABS: ACTIVATED PTT 34.9 SECONDS (25.2-36.5)
[2024-06-04 02:54] LABS: ALBUMIN 3.8 g/dl (3.4-5.0); CALCIUM 9.3 mg/dL (8.5-10.1)
[2024-06-04 02:55] LABS: BLOOD UREA NITROGEN 14.9 mg/dL (7-18)
[2024-06-04 02:58] LABS: CREATININE 0.9 mg/dL (0.55-1.3)
[2024-06-04 02:59] LABS: BILIRUBIN,TOTAL 0.5 mg/dL (0.2-1); TOT PROT 7.4 g/dl (6.4-8.2)
[2024-06-04] MEDS: SODIUM CHLORIDE 0.9% 500 ML INFUS.BAG IV ONE (04:00)
[2024-06-04] MEDS ORDERED: dilTIAZem HCL 125 MG/25 ML - 25 ML VIAL ONE (04:02)
[2024-06-04] MEDS: dilTIAZem HCL 50 MG/10 ML - 10 ML VIAL IVPUSH ONE (04:10)
[2024-06-04 06:30] LABS: BASO % 0.7 % (0-2.0); EOS % 1.6 % (0-4.5); HEMATOCRIT 40.9 % (35.4-49); HEMOGLOBIN 14.6 GM/dL (11.7-16.9); LYMPH % 38.4 % (8-40); MCH 29.6 pg (25.7-33.7); MCHC 35.8 g/dl (32.0-35.9); MEAN CELL VOLUME 82.9 fl (80-96); MONO % 7.8 % (3.8-10.2); NEUT % 51.5 % (42.8-82.8); PLATELET COUNT 234 10^3/uL (134-434); RBC 4.94 M/mm3 (4.00-5.60); RDW 13.8 % (11.9-15.9); WHITE BLOOD COUNT 9.1 K/mm3 (4.0-10.0)
[2024-06-04] MEDS: SODIUM CHLORIDE 2,000 ML IV STA (06:40)
[2024-06-04] MEDS: DIGOXIN 0.5 MG/2 ML AMPUL IVPUSH ONE ×3 (06:44→16:32)
[2024-06-04 06:48] LABS: POTASSIUM 4.4 mmol/L (3.5-5.1)
[2024-06-04 06:50] LABS: ALBUMIN 3.4 g/dl (3.4-5.0); MAGNESIUM 1.8 mg/dL (1.8-2.4)
[2024-06-04 06:53] LABS: CREATININE 0.8 mg/dL (0.55-1.3); PHOSPHOROUS 2.8 mg/dL (2.5-4.9)
[2024-06-04 06:54] LABS: BLOOD UREA NITROGEN 14.5 mg/dL (7-18)
[2024-06-04 06:55] LABS: BILIRUBIN,TOTAL 0.6 mg/dL (0.2-1)
[2024-06-04 06:56] LABS: TOT PROT 6.7 g/dl (6.4-8.2)
[2024-06-04] MEDS ORDERED: CARBAMIDE PEROXIDE 6.5% OTIC 15 ML BOTTLE AU PRN (12:15)
[2024-06-05 09:24] VITALS: BP 111/73; PULSE 83; RESP 18; TEMP 98.8
[2024-06-05] MEDS: APIXABAN 5 MG TABLET PO SCH (10:19)
== END 2024-06-05 12:54 | disposition home or self-care (01) | DRG 310 ==
LOC: JER 01:16 → JERBED 04:13 → J4W 06:40
PROVIDERS: ADMIT Internal Medicine; ATTEND Internal Medicine
DX: I48.91 Unspecified atrial fibrillation (principal); R00.2 Palpitations; R06.02 Shortness of breath; E66.9 Obesity, unspecified; Z68.37 Body mass index [BMI] 37.0-37.9, adult
CPT/HCPCS: 0241U-QW; 36415; 71046-TC-FY; 80053; 83735; 84100; 84439; 84443; 84484; 85025; 85610; 85730; 86850; 86900; 86901; 93005; 93010; 93306-TC; 99285-25; J0131